=== PATIENT | male | born 1935 | race Caucasian/White ===

== ENCOUNTER 2018-12-30 13:19 | Emergency (ER) | payer MEDICARE ==
--- OUTSIDE RECORDS SUMMARY | 2018-12-30 13:56 | XMS REPORT | Continuity of Care Document ---
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 Payers Date Identification Numbers Payment Provider Subscriber Policy Number: [id number] [employer] Rahul Ortega Group Number: [id number] [address] PayID: [id number] [place] [address] Expires: 2016 Policy Number: [id number] BCBS Medicare Blue Rahul Ortega PayID: [id number] [address] [address] [place] [address] Advance Directives Description No Information Available Problems Date Description Provider Status Onset: 10/28/2018 Right bundle branch block Pro Allen PA Active Onset: 09/03/2006 Benign essential hypertension Active Onset: 09/03/2006 Allergic rhinitis due to pollen Active Onset: 11/24/2011 Pure hypercholesterolemia Jesika Romo MD Active Onset: 06/27/2013 Acne Maura Concepcion MD Active Onset: 10/08/2015 Essential hypertension Jesika Romo MD Active Onset: 12/14/2016 Mixed hyperlipidemia Jesika Romo MD Active Family History Date Family Member(s) Observation Comments Father due to ID () - AT 72 First Brother due to ID () - 60'S Social History Type Date Description Comments Sex Unknown Marital Status Occupation [employer] Tobacco Use Start: Unknown Never Smoked Cigarettes ETOH Use Occasionally consumes alcohol Recreational Drug Use Never Used Drugs Tobacco Use Start: Unknown Patient has never smoked Smoking Status Reviewed: 11/15/18 Patient has never smoked Allergies, Adverse Reactions, Alerts Description No Known Drug Allergies Medications Medication Date Status Form Strength Qnty SIG Indications Ordering Provider Metoprolol 10/28 Active Tablets ER 25mg 90tab 1 by mouth Demetrius, Succinate ER 24HR s every day Jesika Sterling MD Tadalafil 08/30 Active Tablets 5mg 90tab 1 by mouth N40.1 Macadam, s every day Jesika dx: BPH MD Asher Rosuvastatin 08/05 Active Tablets 10mg 90tab 1 by mouth I65.23 Mac[place]astacia, Calcium s every day Jesika Sterling MD Diclofenac Sodium 12/13 Active Gel 1% 300gm apply 1 g M70.62 Macadam per joint Jesika four times MD Asher a day as needed Montelukast 01/11 Active Tablets 10mg 30tab 1 by mouth J30.9 Demetrius, Sodium s every day Jesika Sterling MD Azelastine HCL 12/14 Active Solution 0.15% 30ml 2 p bilat R09.82 Mac[place]astacia, (Nasal) twice a Jesika day as MD Asher needed Flunisolide 12/14 Active Solution 25mcg/Act 25uni Instill 2 [facility]09[facility]82 [facility] Spr[facility] Jesika Into Each MD Asher Nostril Every Day Lisinopril-Hydroc 06/15 Active Tablets 10-12.5mg 90tab 1 by mouth I10 Demetrius hlorothiazide s every day Jesika Sterling MD Aspirin 06/27 Active Tablets 81mg 1 po qd 794.31 Maura Craig MD Omeprazole 05/[address] 20mg 90cap 1 by mouth K21.0 Demetrius s every day Jesika Sterling MD Minocycline HCL 05/24 Active Capsules 100mg 90cap take 1 L71.8 Demetrius s capsule by Jesika mouth once MD Asehr daily Amoxicillin/Clavu 11/15 Hx Tablets 875-125mg 20tab 1 by mouth J01.00 Demetrius lanate Potassium /2018 s twice a Jesika - day MD Asher 12/13 Prednisone 11/15 Hx Tablets 20mg 10tab 2 every in J01.00 Mac[place]astacia, s the Jesika - morning x MD Asher 12/13 5 d Penicillin V 10/27 Hx Tablets 500mg 30tab 1 by mouth J02.0 Macadam, Potassium /2019 s three Jesika - times a MD Asher 11/06 day for days Sildenafil 03/28 Hx Tablets 100mg 6tabs 1/2-1 by F5Mynor.21 Demetrius, Citrate mouth Jesika - every day MD Asher 08/30 as needed Viagra 08/23 Hx Tablets 100mg 6tabs 1/2-1 by F52.21 Demetrius, mouth Jesika - every day MD Asher 03/28 as needed Finasteride 03/30 Hx Tablets 5mg 90tab 1 by mouth N40.1 Demetrius, s every day Jesikaher Bryant Sterling MD 08/23 Amoxicillin/Clavu 02/01 Hx Tablets 875-125mg 20tab 1 by mouth J01.00 Demetrius lanate Potassium s twice a Jesika - day MD Asher 03/30 Tamsulosin HCL 12/14 Hx Capsules 0.4mg 90cap 1 by mouth N40.1 Demetrius, s every day Jesikaher Bryant Sterling MD 08/23 Voltaren 04/09 Hx Gel 1% 300gm apply 1 g M70.62 Demetrius per joint Jesika - four times MD Asher 12/13 a day as needed Protopic 10/08 Hx Ointment 0.03% L80 Demetrius, Jesikaher Bryant Sterling MD 10/08 Ranitidine HCL 10/08 Hx Tablets 150mg 180ta 1 by mouth K21.0 Demetrius, bs twice a Jesika - day MD Asher 01/05 Mometasone 02/19 Hx Cream 0.1% 45gm apply L80 Demetrius Furoate twice a Jesika - day to MD Asher 09/16 forearms Robitussin ac 01/21 Hx 150cc 10cc every night at Maura - bedtime as MD Kiara 02/19 needed for cough Tessalon Perles 01/21 Hx Capsules 100mg 30cap 1 by mouth 478.9 s three Maura - times a MD Kiara 02/19 day as needed cough daytime use. May dispense 200mg tid if 100mg not available Azithromycin 01/21 Hx Tablets 250mg 6tabs 2 tabs 478.9 Jamey, (500mg) on Maura - day 1, MD Kiara 02/19 then 1 tab (250mg) by mouth on day 2-5. To start only if no sx improvemen t by 48hr Flunisolide 12/28 Hx Solution 25mcg/Act Diandra, (0.025%) Patricia Pizarro RN MS 08/21 INFORMATICS COORDINATOR Ipratropium 10/23 Hx Solution 0.03% 30ml nose spray Demetrius Conde 2 p bilat Jesika - bid MD Asher 08/21 Fluticasone 10/02 Hx Suspension 50mcg/Act 16gm 2 sprays 473.9 Demetrius Propionate in each Jesika - nostril MD Asher 08/21 daily Montelukast 10/02 Hx Tablets 10mg 30tab 1 po qd J32.9 Demetrius Sodium s Jesika Sterling MD 10/08 Azelastine HCL 10/02 Hx Solution 137mcg/Sp 30ml use 2 J32.9 Demetrius ray sprays in Jesika - each MD Asher 09/16 nostril twice daily as needed Methylprednisolon 10/02 Hx Tablets 4mg 1pack as dir 473.9 Demetrius e Dose Pack Jesika Sterling MD 10/27 Tamsulosin HCL 08/07 Hx Capsules 0.4mg 30cap one po 30 600.20 Demetrius s minutes Jesika - after meal MD Asher 08/21 Lisinopril/Hydroc 06/27 Hx Tablets 10-12.5mg 90tab 1 po qd 401.1 Demetrius hlorothiazide s Jesika Sterling MD 06/15 Rhinocort Aqua 08/22 Hx Suspension 32mcg/Act QS 2p bilat Demetrius qd Jesika Sterling MD 10/02 Sperry-3 05/24 Hx Capsules 1000mg 1-2 po qd E78.0 Demetrius Jesika Sterling MD 09/16 Medrol Dosepak 05/06 Hx Tablets 4mg 1tabs as 381.01 Elizabeth directeted Bryant Mc MD 05/24 Loratadine 07/20 Hx Tablets 10mg 10tab 1 po qd 381.01 Trabout s (OTC but Alexandro, - remind pt 05/24 to some) Sulfacetamide 03/18 Hx Lotion 10% 118ml apply bid 695.3 [facility], Jesika Sterling MD 06/27 Omeprazole 03/[address] 40mg 90cap 1 po qd 530.11 [facility] 05/24 Lisinopril 05/22 Hx Tablets 10mg 90tab 1 po qd 401.1 Demetrius s Jesika Sterling MD 06/27 Lisinopril 12/26 Hx Tablets 5mg 90tab 1 po qd 401.1 [facility] 05/22 Simvastatin 12/26 Hx Tablets 20mg 90tab 1 po qhs E78.0 anastacia s Jesika Sterling MD 09/16 Nasonex 12/26 Hx Suspension 50mcg/Act QS 2 p bilat 477.0 anastacia qd Jesika Sterling MD 08/22 Metronidazole 12/26 Hx Cream 0.75% 45gm apply to 695.3 face bid Jesika Sterling MD 06/27 Amlodipine 09/05 Hx Tablets 2.5mg 30tab 1 po qd 401.1 Demetruis, s Jesika Sterling MD 06/27 Simvastatin 09/05 Hx Tablets 40mg 1/2 po qhs 272.0 Demetrius Jesika Sterling MD 12/26 Cialis 09/05 Hx Tablets 20mg 3tabs 1/2-1 qd 302.72 Demetrius Jesika Sterling MD 12/26 Tamsulosin HCL 07/25 Hx Capsules 0.4mg 30cap 1 po qd 600.20 Demetrius s Jesika Sterling MD 09/05 Singulair 04/11 Hx Tablets 10mg 90tab one po qd Demetrius s prn Jesika Sterling MD 05/06 Azithromycin 01/16 Hx Tablets 250mg 6tabs 2 tabs day 465.9 one and 1 Patricia - tab daily C, RN MS 01/26 till gone Robitussin ac 01/16 Hx 100cc 1-2 tsp 786.2 qid prn Patricia - cough C, RN MS 01/26 Azithromycin 07/28 Hx Tablets 250mg 6tabs 2 Tabs Day 470 One And 1 Patricia - Tab Daily C, RN MS 08/03 Till Gone Rhinocort Aqua 07/18 Hx Suspension 32mcg/Act 3Bott 2 P Bilat 477.0 les qd Jesika Sterling MD 12/26 Singulair 07/18 Hx Tablets 10mg 30tab 1 po qd 477.0 Trab s Bryant Mc MD 12/20 Prednisone 07/11 Hx Tablets 20mg 10tab 1 po bid x 477.0 s 5 days Bryant Mc MD 07/18 Flonase 07/04 Hx Suspension 50mcg/Act 1unit 2 sprays 477.0 s each Patricia - nostril qd C, RN MS 07/18 Xanax 07/04 Hx Tablets 0.5mg 5tabs 1/2-1 po 465.9 every 6 Patricia - hrs prn C, RN MS 07/28 for anxiety Claritin 07/04 Hx Tablets 10mg 20tab 1 PO qd If 477.0 s Needed For Patricia - Allergies C, RN MS 07/18 Astelin 06/29 Hx Solution 137mcg/Sp 1Bott 2P B bid 477.0 Maca lora Saba MD 07/28 Nasonex 06/28 Hx Suspension 50mcg/Act 1unit 1-2 Maca s Intranasal Jesika - Puffs qd MD Asher 07/04 Lisinopril & HCTZ 09/03 Hx Tablets 10mg;12.5 90tab 1/2 po qd 401.1 Macaanastacia mg s Jesika Sterling MD 12/26 Aspirin 09/03 Hx Gelcaps 325mg 100un 1 PO qd 794.31 Demetrius its Jesika Sterling MD 06/27 Lisinopril 01/22 Hx Tablets 10mg 90tab 1 po qd Demetrius s Jesika Sterling MD 09/03 Celebrex 07/10 Hx Capsules 200mg 60cap 1 po qd 726.71 Demetrius s Jesika Sterling MD 09/03 Flonase 12/25 Hx Suspension 50mcg/Spr 1Bott 2 sprays Demetrius ay le each nare Jesika - kerry Sterling MD 07/04 Teveten 12/09 Hx Tablets 600mg 90tab 1 po qd Diandra s Patricia Pizarro RN MS 01/22 INFORMATICS COORDINATOR Amoxicillin 12/09 Hx Tablets 875mg 20tab 1 po bid Demetrius s Jesika Sterling MD 09/03 Viagra 11/03 Hx Tablets 100mg 6tabs 10/19 or 1 Demetrius tab as Jesika - needed Di Sterling MD before intercours e Tetracycline HCL 11/03 Hx Tablets 500mg 180ta 1 PO bid Demetrius bs Jesika Sterling MD 07/04 Medications Administered in Office Medication Date Status Form Strength Qnty SIG Indications Ordering Provider Depo Medrol 80 Administered Injection Macadam, MG 017 Jesika Sterling MD Depo Medrol 80 Administered Injection [place], MG 016 Jesika Sterling MD Depo Medrol 80 Administered Injection Macadam, MG 011 Jesika Sterling MD Torodol Administered Injection Macadam, Injection 15 005 Jesika Sterling MD Immunizations CPT Code Status Date Vaccine Lot # [id number] Given 08/30/2018 Tdap (Adacel) Ages 7 And Above Only [id number] 93396 Given 08/05/2018 Influenza Vac, Quadrivalent, Split, 0.5mL Dosage, [id number] Im Use 31194 Given 08/23/2017 Influenza Vac, Quadrivalent, Split, 0.5mL Dosage, [id number] Im Use 61174 Given 10/08/2015 Influenza Vac, Quadrivalent, Split, 0.5mL Dosage, [id number] Im Use 12228 Given 08/22/2014 Prevnar 13 Pneumococal Conjugate Vaccine [id number] 43170 Given 08/22/2014 Prevnar 13 Pneumococal Conjugate Vaccine [id number] Given 08/21/2014 Fluzone Trivalent Immunization [id number] Q2038 Given 07/22/2012 Fluzone Trivalent Immunization [id number] 33351 Given 11/24/2011 Zoster (Zostavax) [id number] Q2038 Given 07/16/2011 Fluzone Trivalent Immunization [id number] 38816 Given 07/25/2010 Afluria Or Fluvirin Flu Vac Intramuscular [id number] 22091 Given 08/16/2009 Afluria Or Fluvirin Flu Vac Intramuscular [id number] 45895 Given 09/24/2008 Afluria Or Fluvirin Flu Vac Intramuscular [id number] 87627 Given 09/20/2007 Tdap (Adacel) Ages 7 And Above Only [id number] 50037 Given 09/20/2007 Afluria Or Fluvirin Flu Vac Intramuscular [id number] 67567 Given 08/26/2001 Pneumococcal 23 Immunization Adult Or Immunosuppressed Patient [id number] Refused 02/01/2017 Influenza Vac, Quadrivalent, Split, 0.5mL Dosage, Im Use Vital Signs Date Vital Result Comment 12/13/2018 11:11am Weight 192.00 lb Heart Rate 80 /min BP Systolic 120 mmHg BP Diastolic 72 mmHg Height 71 inches 5'11" BMI (Body Mass Index) 26.8 kg/m2 11/15/2018 8:00am Body Temperature 97.8 F Weight 198.00 lb Heart Rate 80 /min BP Systolic 110 mmHg BP Diastolic 70 mmHg Height 71 inches 5'11" BMI (Body Mass Index) 27.6 kg/m2 10/27/2018 11:51am Body Temperature 98.1 F Weight 202.00 lb Heart Rate 150 /min BP Systolic 155 mmHg BP Diastolic 80 mmHg 08/30/2018 9:39am Weight 199.00 lb Heart Rate 68 /min BP Systolic 140 mmHg BP Diastolic 82 mmHg Height 71 inches 5'11" BMI (Body Mass Index) 27.8 kg/m2 08/05/2018 11:13am Weight 198.00 lb Heart Rate 68 /min BP Systolic 140 mmHg BP Diastolic 80 mmHg Height 71 inches 5'11" BMI (Body Mass Index) 27.6 kg/m2 09/14/2017 12:02pm Heart Rate 76 /min BP Systolic 120 mmHg BP Diastolic 74 mmHg Height 71 inches 5'11" 08/23/2017 11:40am Weight 196.00 lb Heart Rate 68 /min BP Systolic 130 mmHg BP Diastolic 80 mmHg Height 71 inches 5'11" BMI (Body Mass Index) 27.3 kg/m2 03/30/2017 11:00am Weight 195.00 lb Heart Rate 68 /min BP Systolic 120 mmHg BP Diastolic 72 mmHg Height 71 inches 5'11" BMI (Body Mass Index) 27.2 kg/m2 02/01/2017 2:29pm Body Temperature 97.5 F Weight 196.00 lb Heart Rate 74 /min BP Systolic 128 mmHg BP Diastolic 74 mmHg Height 71 inches 5'11" O2 % BldC Oximetry 97 % BMI (Body Mass Index) 27.3 kg/m2 01/11/2017 9:42am Weight 199.00 lb Heart Rate 76 /min BP Systolic 140 mmHg BP Diastolic 80 mmHg Height 71 inches 5'11" BMI (Body Mass Index) 27.8 kg/m2 12/14/2016 9:45am Body Temperature 97.8 F Weight 197.00 lb Heart Rate 76 /min BP Systolic 138 mmHg BP Diastolic 78 mmHg Height 71 inches 5'11" BMI (Body Mass Index) 27.5 kg/m2 09/16/2016 8:06am Weight 194.25 lb Heart Rate 77 /min BP Systolic 144 mmHg BP Diastolic 81 mmHg Height 71 inches 5'11" BMI (Body Mass Index) 27.1 kg/m2 Urine Dipstick - Blood NEGATIVE Urine Dipstick - Protein NEGATIVE Urine Dipstick - Glucose NEGATIVE Urine Dipstick - Leukocytes NEGATIVE 04/09/2016 7:59am Weight 198.38 lb Heart Rate 62 /min BP Systolic 136 mmHg BP Diastolic 80 mmHg Height 71 inches 5'11" BMI (Body Mass Index) 27.7 kg/m2 10/08/2015 8:40am Weight 200.50 lb Heart Rate 88 /min BP Systolic 148 mmHg BP Diastolic 88 mmHg BP Systolic Recheck 128 mmHg BP Diastolic Recheck 80 mmHg Height 71 inches 5'11" BMI (Body Mass Index) 28.0 kg/m2 Urine Dipstick - Blood NEGATIVE Urine Dipstick - Protein NEGATIVE Urine Dipstick - Glucose NEGATIVE Urine Dipstick - Leukocytes 1+ 02/19/2015 7:59am Weight 196.00 lb Heart Rate 76 /min BP Systolic 120 mmHg BP Diastolic 72 mmHg Height 71 inches 5'11" BMI (Body Mass Index) 27.3 kg/m2 01/21/2015 11:10am Weight 197.00 lb Heart Rate 91 /min BP Systolic 120 mmHg BP Diastolic 72 mmHg Height 71 inches 5'11" BMI (Body Mass Index) 27.5 kg/m2 11/23/2014 11:14am Weight 199.00 lb Heart Rate 76 /min BP Systolic 116 mmHg BP Diastolic 68 mmHg Height 71 inches 5'11" BMI (Body Mass Index) 27.8 kg/m2 08/21/2014 8:17am Weight 199.00 lb Heart Rate 76 /min BP Systolic 130 mmHg BP Diastolic 68 mmHg Height 71 inches 5'11" BMI (Body Mass Index) 27.8 kg/m2 10/27/2013 10:23am Weight 203.00 lb Heart Rate 80 /min BP Systolic 138 mmHg BP Diastolic 78 mmHg Height 71 inches 5'11" BMI (Body Mass Index) 28.3 kg/m2 10/02/2013 11:41am Body Temperature 98.7 F Weight 200.00 lb Heart Rate 76 /min BP Systolic 138 mmHg BP Diastolic 70 mmHg Height 71 inches 5'11" BMI (Body Mass Index) 27.9 kg/m2 08/07/2013 2:49pm Weight 196.00 lb Heart Rate 76 /min BP Systolic 144 mmHg BP Diastolic 66 mmHg Height 71.5 inches 5'11.50" BMI (Body Mass Index) 27.0 kg/m2 06/27/2013 9:11am Weight 195.00 lb Heart Rate 80 /min BP Systolic 138 mmHg BP Diastolic 78 mmHg Height 71.5 inches 5'11.50" BMI (Body Mass Index) 26.8 kg/m2 05/24/2012 8:21am Weight 196.00 lb Heart Rate 76 /min BP Systolic 136 mmHg BP Diastolic 70 mmHg Height 71.5 inches 5'11.50" BMI (Body Mass Index) 27.0 kg/m2 05/06/2012 9:24am Body Temperature 97.7 F Weight 198.00 lb Heart Rate 68 /min BP Systolic 168 mmHg BP Diastolic 74 mmHg 03/18/2012 8:03am Weight 196.00 lb Heart Rate 76 /min BP Systolic 138 mmHg BP Diastolic 70 mmHg Height 71.5 inches 5'11.50" BMI (Body Mass Index) 27.0 kg/m2 11/24/2011 9:15am Weight 199.00 lb Heart Rate 72 /min BP Systolic 148 mmHg BP Diastolic 68 mmHg BP Systolic Recheck 132 mmHg BP Diastolic Recheck 72 mmHg Height 71.25 inches 5'11.25" BMI (Body Mass Index) 27.6 kg/m2 07/16/2011 1:09pm Weight 200.00 lb Heart Rate 88 /min BP Systolic 132 mmHg BP Diastolic 71 mmHg 05/22/2011 9:16am Weight 197.00 lb Heart Rate 68 /min BP Systolic 146 mmHg BP Diastolic 80 mmHg Height 71.25 inches 5'11.25"With Shoes BMI (Body Mass Index) 27.3 kg/m2 12/26/2010 9:52am Weight 201.00 lb Heart Rate 76 /min BP Systolic 140 mmHg BP Diastolic 74 mmHg 09/05/2010 9:53am Weight 194.00 lb With Shoes Heart Rate 59 /min BP Systolic 115 mmHg BP Diastolic 72 mmHg 07/25/2010 9:20am Weight 192.00 lb Heart Rate 54 /min BP Systolic 138 mmHg BP Diastolic 70 mmHg Height 70.25 inches 5'10.25" BMI (Body Mass Index) 27.4 kg/m2 Urine Dipstick - Blood NEGATIVE Urine Dipstick - Protein NEGATIVE Urine Dipstick - Glucose NEGATIVE 01/16/2010 8:26am Body Temperature 97.8 F Weight 198.00 lb Heart Rate 85 /min BP Systolic 129 mmHg BP Diastolic 69 mmHg 08/16/2009 9:38am Weight 198.00 lb Heart Rate 64 /min BP Systolic 126 mmHg BP Diastolic 60 mmHg Height 71.75 inches 5'11.75" BMI (Body Mass Index) 27.0 kg/m2 Urine Dipstick - Blood NEGATIVE Urine Dipstick - Protein NEGATIVE Urine Dipstick - Glucose NEGATIVE 09/24/2008 12:57pm Weight 199.00 lb Heart Rate 76 /min BP Systolic 142 mmHg BP Diastolic 80 mmHg Height 71.5 inches 5'11.50"With Shoes BMI (Body Mass Index) 27.4 kg/m2 Urine Dipstick - Blood NEGATIVE Urine Dipstick - Protein NEGATIVE Urine Dipstick - Glucose NEGATIVE 09/20/2007 8:30am Weight 198.00 lb Heart Rate 71 /min BP Systolic 142 mmHg BP Diastolic 69 mmHg Height 71.5 inches 5'11.50"With Shoes BMI (Body Mass Index) 27.2 kg/m2 07/28/2007 12:58pm Body Temperature 97.7 F Weight 195.00 lb Heart Rate 95 /min BP Systolic 145 mmHg BP Diastolic 81 mmHg Respiratory Rate 20 /min Height 72 inches 6'0" BMI (Body Mass Index) 26.4 kg/m2 07/18/2007 12:25pm Weight 196.00 lb Heart Rate 78 /min BP Systolic 148 mmHg BP Diastolic 83 mmHg Height 72 inches 6'0" BMI (Body Mass Index) 26.6 kg/m2 07/11/2007 10:12am Body Temperature 97.1 F Weight 197.00 lb Heart Rate 73 /min BP Systolic 151 mmHg BP Diastolic 92 mmHg Height 72 inches 6'0" BMI (Body Mass Index) 26.7 kg/m2 07/04/2007 9:31am Body Temperature 97.9 F Weight 192.00 lb Heart Rate 88 /min BP Systolic 135 mmHg BP Diastolic 88 mmHg Respiratory Rate 22 /min Height 72 inches 6'0" BMI (Body Mass Index) 26.0 kg/m2 09/03/2006 1:02pm Weight 194.00 lb Heart Rate 78 /min BP Systolic 160 mmHg BP Diastolic 66 mmHg BP Systolic Recheck 148 mmHg BP Diastolic Recheck 80 mmHg Height 72 inches 6'0" BMI (Body Mass Index) 26.3 kg/m2 Urine Dipstick - Blood NEGATIVE Urine Dipstick - Protein NEGATIVE Urine Dipstick - Glucose NEGATIVE 07/10/2005 4:53pm Weight 191.00 lb Heart Rate 70 /min BP Systolic 148 mmHg BP Diastolic 8 mmHg 12/19/2004 8:29am Weight 198.00 lb Heart Rate 76 /min BP Systolic 144 mmHg BP Diastolic 83 mmHg 12/09/2004 8:37am Weight 195.00 lb Heart Rate 72 /min BP Systolic 129 mmHg BP Diastolic 76 mmHg Urine Dipstick - Blood NEGATIVE Urine Dipstick - Protein NEGATIVE Urine Dipstick - Glucose NEGATIVE Results Test Date Facility Test Result H/L Range Note Laboratory test 10/27/2018 Done In [facility] 1 Strep positive Negative finding Screen (In-House) Comprehensive Met 08/30/2018 [facility] Sodium 141 mmol/L 135-146 1, 2 [facility] Potassium 4.6 mmol/L 3.5-5.2 Chloride# 105 mmol/L 97-110 3 Carbon Dioxide 26 mmol/L 24-34 Glucose 89 mg/dL 70-105 BUN 25 mg/dL 6-26 Creatinine 1.2 mg/dL 0.5-1.4 Calcium 9.7 mg/dL 8.5-10.2 Total Protein 6.4 g/dL 6.0-8.0 Albumin 4.3 g/dL 3.6-4.9 Globulin 2.1 g/dL 2.0-3.5 A/G Ratio 2.0 Ratio 1.0-2.2 Total Bilirubin 1.0 mg/dL 0.1-1.3 Alkaline Phosphatase 70 U/L 24-140 Alt 13 U/L 3-42 Ast 18 U/L 8-42 Fernanda Egfr >60 >60 4 Non Fernanda Egfr 57 Low >60 5 Anion Gap 10 mmol/L 5-15 6 Lipid 08/30/2018 [facility] Cholesterol 156 mg/dL 50-199 Triglycerides 59 mg/dL 30-200 HDL 61 mg/dL 29-71 7 Chol/ HDL Ratio 2.6 ratio Low 4.0-6.7 VLDL 12 mg/dL 2-29 LDL (Calc) 83 mg/dL 20-99 8 Laboratory test finding 08/30/2018 [facility] TSH 1.36 uIU/mL 0.35-4.94 Magnesium 2.3 mg/dL 1.5-2.7 Comprehensive Met Panel[facility] 08/05/2018 [facility] Sodium 140 mmol/L 135- 146 9 Potassium 4.7 mmol/L 3.5-5.2 Chloride# 103 mmol/L 97-110 10 Carbon Dioxide 26 mmol/L 24-34 Glucose 92 mg/dL 70-105 BUN 22 mg/dL 6-26 Creatinine 1.4 mg/dL 0.5-1.4 Calcium 9.7 mg/dL 8.5-10.2 Total Protein 6.6 g/dL 6.0-8.0 Albumin 4.3 g/dL 3.6-4.9 Globulin 2.3 g/dL 2.0-3.5 A/G Ratio 1.9 Ratio 1.0-2.2 Total Bilirubin 1.0 mg/dL 0.1-1.3 Alkaline Phosphatase 72 U/L 24-140 Alt 11 U/L 3-42 Ast 14 U/L 8-42 Fernanda Egfr 60 Low >60 11 Non Fernanda Egfr 49 Low >60 12 Anion Gap 11 mmol/L 5-15 13 Lipid 08/05/2018 [facility] Cholesterol 193 mg/dL 50-199 Triglycerides 65 mg/dL 30-200 HDL 59 mg/dL - 14 Chol/ HDL Ratio 3.3 ratio Low 4.0-6.7 VLDL 13 mg/dL 2-29 LDL (Calc) 121 mg/dL High 20-99 15 Comprehensive Met Panel[facility] 08/23/2017 [facility] Sodium 143 mmol/L 135- 146 16 Potassium 4.7 mmol/L 3.5-5.2 Chloride# 106 mmol/L 97-110 17 Carbon Dioxide 26 mmol/L 24-34 Glucose 78 mg/dL 70-105 Creatinine 1.2 mg/dL 0.5-1.4 Calcium 9.6 mg/dL 8.5-10.2 Total Protein 6.5 g/dL 6.0-8.0 Albumin 4.2 g/dL 3.6-4.9 Globulin 2.3 g/dL 2.0-3.5 A/G Ratio 1.8 Ratio 1.0-2.2 Total Bilirubin 0.9 mg/dL 0.1-1.3 Alkaline Phosphatase 70 U/L 24-140 Alt 11 U/L 3-42 Ast 17 U/L 8-42 Fernanda Egfr >60 >60 18 Non Fernanda Egfr 59 Low >60 19 Anion Gap 11 mmol/L 7-16 20 BUN 25 mg/dL 6-26 Lipid 08/23/2017 [facility] Cholesterol 194 mg/dL 50-199 Triglycerides 48 mg/dL 30-200 HDL 64 mg/dL 21 Chol/ HDL Ratio 3.1 ratio Low 4.0-6.7 VLDL 10 mg/dL 2-29 LDL (Calc) 121 mg/dL High 20-99 22 CBC With Auto Diff 03/30/2017 [facility] WBC 5.5 K/uL 4.1-11.0 RBC 5.26 M/uL 4.60-6.10 Hemoglobin 15.5 gm/dL 13.5-18.0 Hematocrit 47.4 % 41.0-53.0 MCV 90.2 fL 80.0-97.0 MCH 29.5 pg 27.0-32.0 MCHC 32.7 g/dL 32.0-36.0 RDW 13.6 % 11.5-14.5 PLT Count 211 K/ul 140-400 Neutrophil 68.0 % 35.0-75.0 Lymphocyte 19.2 % 16.0-52.0 Monocyte 9.5 % 2.0-10.0 Eosinophil 2.6 % 0.0-5.0 Basophil 0.7 % 0.0-4.0 Abs Neutrophils 3.8 K/uL 2.1-8.0 Abs Lymphocytes 1.1 K/uL 0.8-5.5 Abs Monocytes 0.5 K/uL 0.1-1.0 Abs Eosinophils 0.1 K/uL 0.0-0.5 Abs Basophils 0.0 K/uL 0.0-0.3 Comprehensive Metabolic (CMP) 03/30/2017 [facility] Sodium 139 mmol/L 135- 146 23 Potassium 4.7 mmol/L 3.5-5.2 Chloride# 103 mmol/L 97-110 24 Carbon Dioxide 27 mmol/L 24-34 Glucose 98 mg/dL 70-105 BUN 25 mg/dL 6-26 Creatinine 1.5 mg/dL High 0.5-1.4 Calcium 9.8 mg/dL 8.5-10.2 Total Protein 6.5 g/dL 6.0-8.0 Albumin 4.2 g/dL 3.6-4.9 Globulin 2.3 g/dL 2.0-3.5 A/G Ratio 1.8 Ratio 1.0-2.2 Total Bilirubin 1.1 mg/dL 0.1-1.3 Alkaline Phosphatase 74 U/L 24-140 Alt 15 U/L 3-42 Ast 20 U/L 8-42 Fernanda Egfr 56 Low >60 25 Non Fernanda Egfr 47 Low >60 26 Anion Gap 14 mmol/L 7-16 27 Lipid 03/30/2017 [facility] Cholesterol 195 mg/dL 50-199 Triglycerides 63 mg/dL 30-200 HDL 62 mg/dL 29-71 28 Chol/ HDL Ratio 3.1 ratio Low 4.0-6.7 VLDL 13 mg/dL 2-29 LDL (Calc) 120 mg/dL High 20-99 29 Comprehensive Metabolic (CMP) 09/16/2016 [facility] Sodium 137 mmol/L 134- 142 Potassium 5.1 mmol/L 3.5-5.2 Chloride 101 mmol/L 97-109 Carbon Dioxide 28 mmol/L 24-34 Glucose 102 mg/dL 70-105 BUN 23 mg/dL 6-26 Creatinine 1.3 mg/dL 0.5-1.4 Calcium 10.0 mg/dL 8.5-10.2 Total Protein 6.8 g/dL 6.0-8.0 Albumin 4.3 g/dL 3.6-4.9 Globulin 2.5 g/dL 2.0-3.5 A/G Ratio 1.7 Ratio 1.0-2.2 Total Bilirubin 0.9 mg/dL 0.1-1.3 Alkaline Phosphatase 70 U/L 24-140 Alt 12 U/L 3-42 Ast 18 U/L 8-42 Anion Gap 13 mmol/L 6-14 Fernanda Egfr >60 >60 30 Non Fernanda Egfr 55 Low >60 31 CBC With [facility]16[facility]2016 [facility] 5.9 K/uL 4.1-11.0 RBC 5.51 M/uL 4.60-6.10 Hemoglobin 16.9 gm/dL 13.5-18.0 Hematocrit 50.5 % 41.0-53.0 MCV 91.6 fL 80.0-97.0 MCH 30.6 pg 27.0-32.0 MCHC 33.4 g/dL 32.0-36.0 RDW 13.4 % 11.5-14.5 PLT Count 228 K/ul 140-400 Neutrophil 69.2 % 35.0-75.0 Lymphocyte 18.6 % 16.0-52.0 Monocyte 8.1 % 2.0-10.0 Eosinophil 3.3 % 0.0-5.0 Basophil 0.8 % 0.0-4.0 Abs Neutrophils 4.1 K/uL 2.1-8.0 Abs Lymphocytes 1.1 K/uL 0.8-5.5 Abs Monocytes 0.5 K/uL 0.1-1.0 Abs Eosinophils 0.2 K/uL 0.0-0.5 Abs Basophils 0.0 K/uL 0.0-0.3 Lipid 09/16/2016 [facility] Cholesterol 199 mg/dL 50-199 Triglycerides 73 mg/dL 30-200 HDL 60 mg/dL 29-71 32 Chol/ HDL Ratio 3.3 ratio Low 4.0-6.7 VLDL 15 mg/dL 2-29 LDL (Calc) 124 mg/dL High 20-99 33 Laboratory test finding 09/16/2016 [facility] PSA 2.210 ng/mL 0.000-4.000 34 Lipid 04/09/2016 [facility] Cholesterol 175 mg/dL 50-199 Triglycerides 64 mg/dL 30-200 HDL 66 mg/dL 29-71 35 Chol/ HDL Ratio 2.7 ratio Low 4.0-6.7 VLDL 13 mg/dL 2-29 LDL (Calc) 96 mg/dL 20-99 36 Comprehensive Metabolic (CMP) 04/09/2016 [facility] Sodium 135 mmol/L 134- 142 Potassium 5.3 No visible h <SEE NOTE> mmol/L High 3.5-5.2 37 Chloride 104 mmol/L 97-109 Carbon Dioxide 25 mmol/L 24-34 Glucose 101 mg/dL 70-105 BUN 24 mg/dL 6-26 Creatinine 1.2 mg/dL 0.5-1.4 Calcium 9.6 mg/dL 8.5-10.2 Total Protein 6.7 g/dL 6.0-8.0 Albumin 4.2 g/dL 3.6-4.9 Globulin 2.5 g/dL 2.0-3.5 A/G Ratio 1.7 Ratio 1.0-2.2 Total Bilirubin 1.0 mg/dL 0.1-1.3 Alkaline Phosphatase 64 U/L 24-140 Alt 15 U/L 3-42 Ast 18 U/L 8-42 Anion Gap 11 mmol/L 6-14 Fernanda Egfr >60 >60 38 Non Fernanda Egfr 58 Low >60 39 Comprehensive Metabolic (CMP) 10/08/2015 [facility] Sodium 137 mmol/L 134- 142 Potassium 5.1 mmol/L 3.5-5.2 Chloride 102 mmol/L 97-109 Carbon Dioxide 28 mmol/L 24-34 Glucose 100 mg/dL 70-105 BUN 24 mg/dL 6-26 Creatinine 1.2 mg/dL 0.5-1.4 Calcium 9.8 mg/dL 8.5-10.2 Total Protein 6.8 g/dL 6.0-8.0 Albumin 4.3 g/dL 3.6-4.9 Globulin 2.5 g/dL 2.0-3.5 A/G Ratio 1.7 Ratio 1.0-2.2 Total Bilirubin 1.0 mg/dL 0.1-1.3 Alkaline Phosphatase 69 U/L 24-140 Alt 13 U/L 3-42 Ast 19 U/L 8-42 Anion Gap 12 mmol/L 6-14 Fernanda Egfr >60 >60 40 Non Fernanda Egfr 57 Low >60 41 Lipid 10/08/2015 [facility] Cholesterol 167 mg/dL 50-199 Triglycerides 69 mg/dL 30-200 HDL 59 mg/dL 29-71 42 Chol/ HDL Ratio 2.8 ratio Low 4.0-6.7 VLDL 14 mg/dL 2-29 LDL (Calc) 94 mg/dL 20-99 43 Laboratory test finding 10/08/2015 [facility] PSA 1.990 ng/mL 0.000-4.000 44 CBC With Auto Diff 10/08/2015 [facility] WBC 6.2 K/uL 4.1-11.0 RBC 5.62 M/uL 4.60-6.10 Hemoglobin 16.6 gm/dL 13.5-18.0 Hematocrit 51.3 % 41.0-53.0 MCV 91.3 fL 80.0-97.0 MCH 29.5 pg 27.0-32.0 MCHC 32.3 g/dL 32.0-36.0 RDW 13.5 % 11.5-14.5 PLT Count 205 K/ul 140-400 Neutrophil 71.6 % 35.0-75.0 Lymphocyte 16.4 % 16.0-52.0 Monocyte 8.5 % 2.0-10.0 Eosinophil 2.7 % 0.0-5.0 Basophil 0.8 % 0.0-4.0 Abs Neutrophils 4.5 K/uL 2.1-8.0 Abs Lymphocytes 1.0 K/uL 0.8-5.5 Abmon 0.5 K/uL 0.1-1.0 Abs Eosinophils 0.2 K/uL 0.0-0.5 Abs Basophils 0.0 K/uL 0.0-0.3 Comprehensive Metabolic (CMP) 02/19/2015 [facility] Sodium 136 mmol/L 134- 142 Potassium 4.4 mmol/L 3.5-5.2 Chloride 105 mmol/L 97-109 Carbon Dioxide 25 mmol/L 24-34 Glucose 112 mg/dL High 70-105 BUN 33 mg/dL High 6-26 Creatinine 1.4 mg/dL 0.5-1.4 Calcium 9.5 mg/dL 8.5-10.2 Total Protein 6.7 g/dL 6.0-8.0 Albumin 4.2 g/dL 3.6-4.9 Globulin 2.5 g/dL 2.0-3.5 A/G Ratio 1.7 Ratio 1.0-2.2 Total Bilirubin 1.1 mg/dL 0.1-1.3 Alkaline Phosphatase 65 U/L 24-140 Alt 15 U/L 3-42 Ast 20 U/L 8-42 Anion Gap 10 mmol/L 6-14 Fernanda Egfr >60 >60 45 Non Fernanda Egfr 51 Low >60 46 Lipid 02/19/2015 [facility] Cholesterol 162 mg/dL 50-199 Triglycerides 58 mg/dL 30-200 HDL 63 mg/dL 29-71 47 Chol/ HDL Ratio 2.6 ratio Low 4.0-6.7 VLDL 12 mg/dL 2-29 LDL (Calc) 87 mg/dL 20-99 48 CBC With Auto Diff 08/21/2014 [facility] WBC 4.9 K/uL 4.1-11.0 RBC 5.41 M/uL 4.60-6.10 Hemoglobin 16.6 gm/dL 13.5-18.0 Hematocrit 48.9 % 41.0-53.0 MCV 90.3 fL 80.0-97.0 MCH 30.6 pg 27.0-32.0 MCHC 33.9 g/dL 32.0-36.0 RDW 14.0 % 11.5-14.5 PLT Count 221 K/ul 140-400 Neutrophil 62.8 % 35.0-75.0 Lymphocyte 22.1 % 16.0-52.0 Monocyte 9.3 % 2.0-10.0 Eosinophil 4.8 % 0.0-5.0 Basophil 1.0 % 0.0-4.0 Abs Neutrophils 3.1 K/uL 2.1-8.0 Abs Lymphocytes 1.1 K/uL 0.8-5.5 Abmon 0.5 K/uL 0.1-1.0 Abs Eosinophils 0.2 K/uL 0.0-0.5 Abs Basophils 0.1 K/uL 0.0-0.3 Comprehensive Metabolic (CMP) 08/21/2014 [facility] Sodium 138 mmol/L 134- 142 Potassium 5.0 mmol/L 3.5-5.2 Chloride 103 mmol/L 97-109 Carbon Dioxide 25 mmol/L 24-34 Glucose 101 mg/dL 70-105 BUN 23 mg/dL 6-26 Creatinine 1.2 mg/dL 0.5-1.4 Calcium 9.7 mg/dL 8.5-10.2 Total Protein 6.8 g/dL 6.0-8.0 Albumin 4.3 g/dL 3.6-4.9 Globulin 2.5 g/dL 2.0-3.5 A/G Ratio 1.7 Ratio 1.0-2.2 Total Bilirubin 0.9 mg/dL 0.1-1.3 Alkaline Phosphatase 68 U/L 24-140 Alt 13 U/L 3-42 Ast 17 U/L 8-42 Anion Gap 15 mmol/L High 6-14 Fernanda Egfr >60 >60 49 Non Fernanda Egfr 58 Low >60 50 Lipid 08/21/2014 [facility] Cholesterol 165 mg/dL 50-199 Triglycerides 53 mg/dL 30-200 HDL 65 mg/dL 29-71 51 Chol/ HDL Ratio 2.5 ratio Low 4.0-6.7 VLDL 11 mg/dL 2-29 LDL (Calc) 89 mg/dL 20-99 52 Laboratory test finding 08/21/2014 [facility] TSH 1.05 uIU/mL 0.34-5.60 Magnesium 2.1 mg/dL 1.5-2.7 Vitamin B12 1196 pg/mL High 180-914 PSA 1.610 ng/mL 0.000-4.000 53 Laboratory test 08/07/2013 [facility] Urine Culture Microbiology res 54 finding <SEE NOTE> CBC With Auto Diff 06/27/2013 [facility] WBC 5.1 K/uL 4.1-11.0 RBC 5.11 M/uL 4.60-6.10 Hemoglobin 16.0 gm/dL 13.5-18.0 Hematocrit 47.0 % 41.0-53.0 MCV 91.9 fL 80.0-97.0 MCH 31.3 pg 27.0-32.0 MCHC 34.0 g/dL 32.0-36.0 RDW 13.5 % 11.5-14.5 PLT Count 214 K/ul 140-400 Neutrophil 67.7 % 35.0-75.0 Lymphocyte 19.0 % 16.0-52.0 Monocyte 9.5 % 2.0-10.0 Eosinophil 3.0 % 0.0-5.0 Basophil 0.8 % 0.0-4.0 Abs Neutrophils 3.5 K/uL 2.1-8.0 Abs Lymphocytes 1.0 K/uL 0.8-5.5 Abs Monocytes 0.5 K/uL 0.1-1.0 Abs Eosinophils 0.2 K/uL 0.0-0.5 Abs Basophils 0.0 K/uL 0.0-0.3 Comprehensive Metabolic (CMP) 06/27/2013 [facility] Sodium 136 mmol/L 134- 142 Potassium 5.3 No visible h <SEE NOTE> mmol/L High 3.5-5.2 55 Chloride 103 mmol/L 97-109 Carbon Dioxide 25 mmol/L 24-34 Glucose 94 mg/dL 70-105 BUN 23 mg/dL 6-26 Creatinine 1.3 mg/dL 0.5-1.4 Calcium 9.5 mg/dL 8.5-10.2 Total Protein 6.7 g/dL 6.0-8.0 Albumin 4.4 g/dL 3.6-4.9 Globulin 2.3 g/dL 2.0-3.5 A/G Ratio 1.9 Ratio 1.0-2.2 Total Bilirubin 0.8 mg/dL 0.1-1.3 Alkaline Phosphatase 61 U/L 24-140 Alt 15 U/L 3-42 Ast 18 U/L 8-42 Anion Gap 13 mmol/L 6-14 Fernanda Egfr >60 >60 56 Non Fernanda Egfr 56 Low >60 57 Lipid 06/27/2013 [facility] Cholesterol 168 mg/dL 50-199 Triglycerides 57 mg/dL 30-200 HDL 67 mg/dL 29-71 58 Chol/ HDL Ratio 2.5 ratio Low 4.0-6.7 VLDL 11 mg/dL 2-29 LDL (Calc) 90 mg/dL 20-99 59 Laboratory test finding 06/27/2013 [facility] TSH 1.39 uIU/mL 0.34-5.60 PSA 2.12 ng/mL 0.00-4.00 60 PT+PTT -RL 06/27/2013 [facility] Aptt 30.2 SEC (22.0-32.6) 61 Protime 06/27/2013 [facility] PT 11.7 SEC (9.2-11.9) Inr 1.07 62 Laboratory test finding 05/24/2012 [facility] Hemoglobin A1c 5.9 % 4.1-5.9 Basic (BMP) 05/24/2012 [facility] Sodium 137 mmol/L 134-142 Potassium 5.0 mmol/L 3.5-5.2 Chloride 102 mmol/L 97-109 Carbon Dioxide 27 mmol/L 24-34 Glucose 108 mg/dL High 70-105 BUN 25 mg/dL 6-26 Creatinine 1.1 mg/dL 0.5-1.4 Calcium 9.7 mg/dL 8.5-10.2 Anion Gap 13 mmol/L 6-14 Non Fernanda Egfr >60 >60 63 Fernanda Egfr >60 >60 64 CBC With Auto Diff 05/24/2012 [facility] WBC 5.4 K/uL 4.1-11.0 RBC 5.07 M/uL 4.60-6.10 Hemoglobin 15.5 gm/dL 13.5-18.0 Hematocrit 46.4 % 41.0-53.0 MCV 91.5 fL 80.0-97.0 MCH 30.6 pg 27.0-32.0 MCHC 33.4 g/dL 32.0-36.0 RDW 13.4 % 11.5-14.5 PLT Count 194 K/ul 140-400 Neutrophil 62.0 % 35.0-75.0 Lymphocyte 22.9 % 16.0-52.0 Monocyte 9.9 % 2.0-10.0 Eosinophil 4.4 % 0.0-5.0 Basophil 0.8 % 0.0-4.0 Abs Neutrophils 3.3 K/uL 2.1-8.0 Abs Lymphocytes 1.2 K/uL 0.8-5.5 Abs Monocytes 0.5 K/uL 0.1-1.0 Abs Eosinophils 0.2 K/uL 0.0-0.5 Abs Basophils 0.0 K/uL 0.0-0.3 Laboratory test finding 05/24/2012 [facility] TSH 1.09 uIU/mL 0.34-5.60 CBC With Auto Diff 11/24/2011 [facility] WBC 5.2 K/uL 4.1-11.0 RBC 5.08 M/uL 4.60-6.10 Hemoglobin 16.1 gm/dL 13.5-18.0 Hematocrit 47.6 % 41.0-53.0 MCV 93.7 fL 80.0-97.0 MCH 31.7 pg 27.0-32.0 MCHC 33.9 g/dL 32.0-36.0 RDW 13.8 % 11.5-14.5 PLT Count 191 K/ul 140-400 Neutrophil 64.7 % 35.0-75.0 Lymphocyte 22.8 % 16.0-52.0 Monocyte 8.2 % 2.0-10.0 Eosinophil 3.7 % 0.0-5.0 Basophil 0.6 % 0.0-4.0 Abs Neutrophils 3.4 K/uL 2.1-8.0 Abs Lymphocytes 1.2 K/uL 0.8-5.5 Abs Monocytes 0.4 K/uL 0.1-1.0 Abs Eosinophils 0.2 K/uL 0.0-0.5 Abs Basophils 0.0 K/uL 0.0-0.3 Comprehensive Metabolic (CMP) 11/24/2011 [facility] Sodium 138 mmol/L 135- 144 Potassium 4.4 mmol/L 3.5-5.1 Chloride 105 mmol/L 97-107 Carbon Dioxide 27 mmol/L 24-34 Glucose 101 mg/dL 70-105 BUN 20 mg/dL 7-25 Creatinine 1.1 mg/dL 0.7-1.3 Calcium 9.5 mg/dL 8.6-10.3 BUN/CR 19 ratio 12-20 Total Protein 6.7 g/dL 6.0-8.5 Albumin 4.4 g/dL 3.5-5.7 Globulin 2.3 g/dL 2.0-3.5 A/G Ratio 1.9 Ratio 1.0-2.2 Total Bilirubin 1.1 mg/dL 0.3-1.3 Alkaline Phosphatase 59 U/L 34-104 Alt 12 U/L 7-52 Ast 17 U/L 13-39 Anion Gap 10 mmol/L 8-16 Non Fernanda Egfr >60 >60 65 Fernanda Egfr >60 >60 66 Lipid 11/24/2011 [facility] Cholesterol 164 mg/dL 50-199 Triglycerides 55 mg/dL 10-150 HDL 66 mg/dL 23-92 67 Chol/ HDL Ratio 2.5 ratio Low 4.0-6.7 VLDL 11 mg/dL 2-29 LDL (Calc) 87 mg/dL 20-129 68 Laboratory test finding 11/24/2011 [facility] Hemoglobin A1c 5.9 % 4.1-5.9 PSA 1.69 ng/mL 0.00-4.00 69 CPK 69 U/L 30-223 Magnesium 2.1 mg/dL 1.9-2.7 Comprehensive Metabolic (CMP) 04/02/2011 [facility] Sodium 137 mmol/L 135- 144 70 Potassium 4.2 mmol/L 3.6-5.2 Chloride 106 mmol/L 97-110 Carbon Dioxide 25 mmol/L 23-32 Glucose 116 mg/dL High 70-105 BUN 16 mg/dL 6-22 Creatinine 1.2 mg/dL 0.5-1.3 Calcium 9.4 mg/dL 8.6-10.2 BUN/CR 13 ratio 12-20 Total Protein 6.6 g/dL 5.8-7.8 Albumin 3.9 g/dL 3.5-4.8 Globulin 2.7 g/dL 2.0-3.5 A/G Ratio 1.4 Ratio 1.0-2.2 Total Bilirubin 1.2 mg/dL 0.3-1.2 Alkaline Phosphatase 60 U/L 24-140 Alt 22 U/L 5-45 Ast 23 U/L 12-40 Anion Gap 10 mmol/L 8-16 Non Fernanda Egfr 59 Low >60 71 Fernanda Egfr >60 >60 72 Laboratory test finding 04/02/2011 [facility] Hemoglobin A1c 6.1 % High 4.1- 5.9 Lipid 04/02/2011 [facility] Cholesterol 165 mg/dL 50-199 Triglycerides 49 mg/dL 10-150 HDL 64 mg/dL 29-71 73 Chol/ HDL Ratio 2.6 ratio Low 4.0-6.7 VLDL 10 mg/dL 2-29 LDL (Calc) 91 mg/dL 20-129 74 Comprehensive Metabolic (CMP) 12/26/2010 [facility] Sodium 138 mmol/L 135- 144 75 Potassium 4.6 mmol/L 3.6-5.2 Chloride 103 mmol/L 97-110 Carbon Dioxide 25 mmol/L 23-32 Glucose 108 mg/dL High 70-105 BUN 24 mg/dL High 6-22 Creatinine 1.3 mg/dL 0.5-1.3 Calcium 9.8 mg/dL 8.6-10.2 BUN/CR 18 ratio 12-20 Total Protein 6.6 g/dL 5.8-7.8 Albumin 4.0 g/dL 3.5-4.8 Globulin 2.6 g/dL 2.0-3.5 A/G Ratio 1.5 Ratio 1.0-2.2 Tbili 1.0 mg/dL 0.3-1.2 Alk Phos 63 U/L 24-140 Alt 19 U/L 5-45 Ast 22 U/L 12-40 Anion Gap 15 mmol/L 8-16 NAAeGFR 54 Low >60 76 AAeGFR >60 >60 77 Lipid 12/26/2010 [facility] Cholesterol 170 mg/dL 50-199 Triglycerides 57 mg/dL 10-150 HDL 68 mg/dL 29-71 78 Chol/HDL 2.5 ratio Low 4.0-6.7 VLDL 11 mg/dL 2-29 LDL 91 mg/dL 20-129 79 Laboratory test 12/26/2010 [facility] Hemoglobin A1c 5.8 % 4.1-6.6 finding CBC With Auto 07/25/2010 [facility] (Do not Use) WBC 5.6 K/ul 4.0-10.9 80 Diff [facility] [place] [address] [phone] RBC 5.14 M/ul 4.70-6.10 Hemoglobin 16.4 GM/dl 13.5-18.0 Hematocrit 48.1 % 42.0-52.0 MCV 93.6 FL 80.0-97.0 MCH 31.9 pg High 27.0-31.0 MCHC 34.1 g/dL 32.0-36.0 RDW 13.5 % 11.5-14.5 Platelet Count 226 K/ul 140-440 Neutrophils 70.8 % High 50-70 Lymphocytes 18.8 % Low 20-44 Monocytes 8.3 % 2-9 Eosinophil 1.8 % 0-4 Basophil 0.3 % 0-2 Absolute Neutrophils 3.9 K/ul 2.05-7.63 Absolute Lymphocytes 1.0 K/ul 0.8-4.8 Absolute Monocytes 0.5 K/ul 0.1-1.0 Absolute Eosinophils 0.1 K/ul 0.1-0.5 Absolute Basophils 0.0 K/ul 0.0-0.3 Hematology Comment (Comm2) N/A CMP 07/25/2010 [facility] (Do not Use) Sodium 138 mmol/L 135-144 [facility] [place] [address] [phone] Potassium 5.0 mmol/L 3.6-5.2 81 Chloride 103 mmol/L 97-110 Carbon Dioxide 25 mmol/L 23-32 Glucose 109 mg/dL High 70-105 BUN 21 mg/dL 6-22 Creatinine 1.3 mg/dL 0.5-1.3 BUN/CR 16 Ratio Calcium 9.9 mg/dL 8.6-10.2 Total Protein 7.1 g/dL 5.8-7.8 Albumin 4.2 g/dL 3.5-4.8 Globulin 2.9 g/dL 2.0-3.5 A/G Ratio 1.5 Ratio 1.0-2.2 Total Bilirubin 1.5 mg/dL High 0.3-1.2 Alkaline Phosphatase 68 U/L 24-140 Alt 21 U/L 5-45 Ast 20 U/L 12-40 Anion Gap 15 mmol/L 8-16 GFR Calculation 57 mL/min Low 60-175 82 GFR For > 60 mL/min 60-175 83 Lipid Panel 07/25/2010 [facility] (Do not Use) Cholesterol 222 mg/dL High 50-199 [facility] [place] [address] [phone] Triglycerides 50 mg/dL 10-150 HDL 69 mg/dL 29-71 84 Chol/HDL Ratio 3.2 Ratio Low 4.0-6.7 85 VLDL 10 mg/dL 2-29 LDL (Calc) 143 mg/dL High 20-129 86 Laboratory test 07/25/2010 [facility] (Do not Use) PSA 1.94 ng/ml 0.00- 4.00 87 finding [facility] [place] [address] [phone] CBC With Auto Diff 08/16/2009 [facility] (Do not Use) WBC 5.5 K/ul 4.0- 10.9 [facility] [place] [address] [phone] RBC 4.99 M/ul 4.70-6.10 Hemoglobin 15.4 GM/dl 13.5-18.0 Hematocrit 46.3 % 42.0-52.0 MCV 92.8 FL 80.0-97.0 MCH 30.9 pg 27.0-31.0 MCHC 33.3 g/dL 32.0-36.0 RDW 13.0 % 11.5-14.5 Platelet Count 229 K/ul 140-440 Neutrophils 68.4 % 50-70 Lymphocytes 19.8 % Low 20-44 Monocytes 8.8 % 2-9 Eosinophil 2.5 % 0-4 Basophil 0.5 % 0-2 Absolute Neutrophils 3.8 K/ul 2.05-7.63 Absolute Lymphocytes 1.1 K/ul 0.8-4.8 Absolute Monocytes 0.5 K/ul 0.1-1.0 Absolute Eosinophils 0.1 K/ul 0.1-0.5 Absolute Basophils 0.0 K/ul 0.0-0.3 Hematology Comment (Comm2) N/A CMP 08/16/2009 [facility] (Do not Use) Sodium 142 mmol/L 135-144 [facility] [place] [address] [phone] Potassium 4.4 mmol/L 3.6-5.2 Chloride 109 mmol/L 97-110 Carbon Dioxide 29 mmol/L 23-32 Glucose 83 mg/dL 70-105 BUN 22 mg/dL 6-22 Creatinine 1.2 mg/dL 0.5-1.3 BUN/CR 18 Ratio 12.0-20.0 Calcium 9.9 mg/dL 8.6-10.2 88 Total Protein 6.7 g/dL 5.8-7.8 Albumin 4.1 g/dL 3.5-4.8 Globulin 2.6 g/dL 2.0-3.5 A/G Ratio 1.6 Ratio 1.0-2.2 Total Bilirubin 1.2 mg/dL 0.3-1.2 Alkaline Phosphatase 55 U/L 24-140 Alt 20 U/L 5-45 Ast 23 U/L 12-40 Anion Gap 8 mmol/L 8-16 GFR Calculation > 60 mL/min 60-175 89 GFR For > 60 mL/min 60-175 90 Lipid Panel 08/16/2009 [facility] (Do not Use) Cholesterol 222 mg/dL High 50-199 [facility] [place] [address] [phone] Triglycerides 52 mg/dL 10-150 HDL 70 mg/dL 29-71 91 Chol/HDL Ratio 3.2 Ratio Low 4.0-6.7 92 VLDL 10 mg/dL 2-29 LDL (Calc) 142 mg/dL High 20-129 93 Laboratory test 08/16/2009 [facility] (Do not Use) Vitamin D, 25 RESULT 30-100 94 finding [facility] [place] [address] <SEE NOTE> [phone] ng/[phone] PSA 1.80 ng/ml 0.00-4.00 95 CBC With Auto Diff 09/24/2008 [facility] (Do not Use) WBC 6.1 K/ul 4.0- 10.9 [facility] [place] [address] [phone] RBC 5.20 M/ul 4.70-6.10 Hemoglobin 16.2 GM/dl 13.5-18.0 Hematocrit 47.6 % 42.0-52.0 MCV 91.6 FL 80.0-97.0 MCH 31.1 pg High 27.0-31.0 MCHC 34.0 g/dL 32.0-36.0 RDW 13.1 % 11.5-14.5 Platelet Count 227 K/ul 140-440 Neutrophils N/A % 50-70 Lymphocytes N/A % 20-44 Monocytes N/A % 2-9 Eosinophil N/A % 0-4 Basophil N/A % 0-2 Absolute Neutrophils N/A K/ul 2.05-7.63 Absolute Lymphocytes N/A K/ul 0.8-4.8 Absolute Monocytes N/A K/ul 0.1-1.0 Absolute Eosinophils N/A K/ul 0.1-0.5 Absolute Basophils N/A K/ul 0.0-0.3 Hematology Comment (Comm2) N/A CMP 09/24/2008 [facility] (Do not Use) Sodium 138 mmol/L 135-144 [facility] [place] [address] [phone] Potassium 4.0 mmol/L 3.6-5.2 96 Chloride 103 mmol/L 97-110 Carbon Dioxide 26 mmol/L 23-33 Glucose 77 mg/dL 70-105 BUN 22 mg/dL 6-22 Creatinine 1.1 mg/dL 0.5-1.3 BUN/CR 20 Ratio 12.0-20.0 Calcium 9.5 mg/dL 8.6-10.2 Total Protein 6.5 g/dL 5.8-7.8 Albumin 4.0 g/dL 3.5-4.8 Globulin 2.5 g/dL 2.0-3.5 A/G Ratio 1.6 Ratio 1.0-2.2 Total Bilirubin 1.1 mg/dL 0.3-1.2 Alkaline Phosphatase 56 U/L 24-140 Alt 17 U/L 4-45 Ast 20 U/L 12-40 Anion Gap 13 mmol/L 8-16 GFR Calculation > 60 mL/min 97 GFR For > 60 mL/min 98 Lipid Panel 09/24/2008 [facility] (Do not Use) Cholesterol 218 mg/dL High 50-199 [facility] [place] [address] [phone] Triglycerides 43 mg/dL 10-150 HDL 71 mg/dL 29-71 99 Chol/HDL Ratio 3.1 Ratio 100 VLDL 9 mg/dL LDL (Calc) 138 mg/dL High 20-129 101 Laboratory test 09/24/2008 [facility] (Do not Use) PSA 1.59 ng/ml 0.00- 4.00 102 finding [facility] [place] [address] [phone] CRP- High Sensitivity 0.79 mg/L 0.00-3.00 103 Diff For Manual CBC 09/24/2008 [facility] (Do not Use) Blast N/A % [place] [address] [phone] Promyelocyte N/A % Myelocyte N/A % Metamyelocyte N/A % Band 5 % 2-6 Neutrophil 65 % 50-70 Lymphocyte 17 % Low 20-44 Monocyte 7 % 2-9 Eosinophil 6 % High 0-4 Basophil N/A % 0-2 Platelet Estimate NORMAL RBC Morphology NORMAL Anisocytosis N/A Poikilocytosis N/A Macrocytosis N/A Microcytosis N/A Hypochromasia N/A Atypical Lymphs N/A % Hyperchromia N/A Polychromasia N/A Abnormal Cells N/A CBC With Auto Diff 09/20/2007 [facility] (Do not Use) WBC 4.7 K/ul 4.0- 10.9 [place] [address] [phone] RBC 5.01 M/ul 4.70-6.10 Hemoglobin 15.8 GM/dl 13.5-18.0 Hematocrit 46.4 % 42.0-52.0 MCV 92.7 FL 80.0-97.0 MCH 31.6 pg High 27.0-31.0 MCHC 34.1 g/dL 32.0-36.0 RDW 12.6 % 11.5-14.5 Platelet Count 277 K/ul 140-440 Neutrophils 74.6 % High 50-70 Lymphocytes 16.4 % Low 20-44 Monocytes 7.8 % 2-9 Eosinophil 0.9 % 0-4 Basophil 0.3 % 0-2 Absolute Neutrophils 3.5 K/ul 2.05-7.63 Absolute Lymphocytes 0.8 K/ul 0.8-4.8 Absolute Monocytes 0.4 K/ul 0.1-1.0 Absolute Eosinophils 0.0 K/ul Low 0.1-0.5 Absolute Basophils 0.0 K/ul Low 0.1-0.3 CMP 09/20/2007 [facility] (Do not Use) Sodium 139 mmol/L 135-144 [facility] [place] [address] [phone] Potassium 4.8 mmol/L 3.6-5.2 Chloride 107 mmol/L 97-110 Carbon Dioxide 26 mmol/L 23-33 Glucose 101 mg/dL 70-105 BUN 20 mg/dL 6-22 Creatinine 1.2 mg/dL 0.5-1.3 BUN/CR 17 Ratio 12.0-20.0 Calcium 9.7 mg/dL 8.6-10.2 Total Protein 6.4 g/dL 5.8-7.8 Albumin 4.0 g/dL 3.5-4.8 Globulin 2.4 g/dL 2.0-3.5 A/G Ratio 1.7 Ratio 1.0-2.2 Total Bilirubin 1.1 mg/dL 0.3-1.2 Alkaline Phosphatase 61 U/L 24-140 Alt 23 U/L 4-45 Ast 26 U/L 12-40 Anion Gap 11 mmol/L 8-16 GFR Calculation > 60 mL/min 104 GFR For > 60 mL/min 105 Lipid Panel 09/20/2007 [facility] (Do not Use) Cholesterol 222 mg/dL High 50-199 [facility] [place] [address] [phone] Triglycerides 44 mg/dL 10-150 HDL 74 mg/dL High 29-71 Chol/HDL Ratio 3.0 Ratio VLDL 9 mg/dL LDL (Calc) 139 mg/dL High 20-129 Laboratory test 09/20/2007 [facility] (Do not Use) TSH 1.14 uIU/ml 0.34 -5.60 finding [facility] [place] [address] [phone] PSA Free & Total 09/20/2007 [facility] (Do not Use) PSA, 1.3 NG/ML 0.0- 4.0 -LA [facility] [place] [address] [phone] PSA, Free 0.4 NG/ML PSA, % Free - LA 31 % 106 CBC With Auto Diff 09/03/2006 [facility] (Do not Use) WBC 7.9 K/ul 4.0- 10.9 107 [facility] [place] [address] [phone] RBC 4.95 M/ul 4.70-6.10 Hemoglobin 16.0 GM/dl 13.5-18.0 Hematocrit 45.8 % 42.0-52.0 MCV 92.4 FL 80.0-97.0 MCH 32.2 pg High 27.0-31.0 MCHC 34.9 g/dL 32.0-36.0 RDW 12.0 % 11.5-14.5 Platelet Count 211 K/ul 140-440 Neutrophils 77.9 % High 50-70 Lymphocytes 12.6 % Low 20-44 Monocytes 6.3 % 2-9 Eosinophil 3.1 % 0-4 Basophil 0.1 % 0-2 Absolute Neutrophils 6.2 K/ul 2.05-7.63 Absolute Lymphocytes 1.0 K/ul 0.8-4.8 Absolute Monocytes 0.5 K/ul 0.1-1.0 Absolute Eosinophils 0.2 K/ul 0.1-0.5 Absolute Basophils 0.0 K/ul Low 0.1-0.3 CMP 09/03/2006 [facility] (Do not Use) Sodium 137 mmol/L 135-144 [facility] [place] [address] [phone] Potassium 4.8 mmol/L 3.6-5.2 Chloride 105 mmol/L 97-110 Carbon Dioxide 24 mmol/L 23-33 Glucose 91 mg/dL 70-105 BUN 19 mg/dL 6-22 Creatinine 1.2 mg/dL 0.5-1.3 BUN/CR 16 Ratio 12.0-20.0 Calcium 9.6 mg/dL 8.6-10.2 Total Protein 6.9 g/dL 5.8-7.8 Albumin 4.2 g/dL 3.5-4.8 Globulin 2.7 g/dL 2.0-3.5 A/G Ratio 1.6 Ratio 1.0-2.2 Total Bilirubin 1.1 mg/dL 0.3-1.2 Alkaline Phosphatase 65 U/L 24-140 Alt 16 U/L 4-45 Ast 21 U/L 12-40 Anion Gap 13 mmol/L 8-16 GFR White Male 63 GFR White Female 47 GFR Black Male 76 GFR Black Female 56 GFR Guidelines 0 108 Lipid Panel 09/03/2006 [facility] (Do not Use) Cholesterol 210 mg/dL High 50-199 [facility] [place] [address] [phone] Triglycerides 46 mg/dL 10-150 HDL 74 mg/dL High 29-71 Chol/HDL Ratio 2.8 Ratio VLDL 9 mg/dL LDL (Calc) 127 mg/dL 20-129 Laboratory test 09/03/2006 [facility] (Do not Use) PSA 1.31 ng/ml 0.00- 4.00 109 finding [facility] [place] [address] [phone] TSH 1.11 uIU/ml 0.50-6.00 CBC 12/09/2004 [facility] (Do not Use) WBC 4.2 K/ul 4.1-10.9 [facility] [place] [address] [phone] RBC 5.19 M/ul 4.20-6.30 Hemoglobin 16.2 GM/dl High 12.0-16.0 Hematocrit 47.5 % 37.0-51.0 MCV 91.6 FL 80.0-97.0 MCH 31.3 pg 26.0-32.0 MCHC 34.1 g/dL 31.0-36.0 RDW 12.5 % 11.5-14.5 Platelet Count 219 K/ul 140-440 Neutrophils 64.0 % 50-70 Lymphocytes 19.5 % Low 20-44 Monocytes 8.8 % 2-9 Eosinophil 7.3 % High 0-4 Basophil 0.4 % 0-2 Absolute Neutrophils 2.7 K/ul 2.05-7.63 Absolute Lymphocytes 0.8 K/ul 0.8-4.8 Absolute Monocytes 0.4 K/ul 0.1-1.0 Absolute Eosinophils 0.3 K/ul 0.1-0.5 Absolute Basophils 0.0 K/ul Low 0.1-0.3 Laboratory test 12/09/2004 [facility] (Do not Use) Hemoglobin A1c 5.4 % 4.1-6.5 finding [facility] [place], [place] [id number] [phone] TSH 1.75 uIU/ml 0.50-6.00 Lipid Panel 12/09/2004 [facility] (Do not Use) Cholesterol 201 mg/dL High 50-199 [facility] [place], [place] [id number] [phone] Triglycerides 56 mg/dL 30-200 HDL 59 mg/dL 29-71 Chol/HDL Ratio 3.4 Ratio VLDL 11 mg/dL LDL (Calc) 131 mg/dL High 20-129 CMP 12/09/2004 [facility] (Do not Use) Sodium 140 mmol/L 135-145 [facility] [place] [address] [phone] Potassium 5.4 mmol/L High 3.4-5.3 110 Chloride 107 mmol/L 98-111 Carbon Dioxide 29 mmol/L 22-33 Glucose 107 mg/dL High 70-105 BUN 25 mg/dL 6-26 Creatinine 1.2 mg/dL 0.5-1.5 BUN/CR 21 Ratio High 12.0-20.0 Calcium 9.8 mg/dL 8.6-10.3 Total Protein 7.5 g/dL 6.2-8.3 Albumin 4.4 g/dL 3.5-5.0 Globulin 3.1 g/dL 2.7-4.3 A/G Ratio 1.4 Ratio 1.0-2.2 Total Bilirubin 1.1 mg/dL 0.1-1.3 Ast 16 U/L 8-42 Alt 16 U/L 3-42 Alkaline Phosphatase 80 U/L 24-140 Anion Gap 9 mmol/L Low 10-20 Laboratory test 03/14/2004 [facility] (Do not Use) Hemoglobin A1c 5.4 % 4.1-6.5 finding [facility] [place] [address] [phone] Basic (BMP) 03/14/2004 [facility] (Do not Use) Sodium 138 135-145 [facility] mmol/[place] [address] [phone] Potassium 4.3 mmol/L 3.4-5.3 Chloride 108 mmol/L 98-111 Carbon Dioxide 26 mmol/L 22-33 Glucose 100 mg/dL 70-105 BUN 26 mg/dL 6-26 Creatinine 1.3 mg/dL 0.5-1.5 BUN/CR 20 Ratio 12.0-20.0 Anion Gap 8 mmol/L Low 10-20 Calcium 9.2 mg/dL 8.6-10.3 Bilirubin Panel 11/09/2003 [facility] (Do not Use) Direct 0.1 mg/dL 0.0 -0.4 [facility] [place] [address] [phone] Bilirubin, Indirect 1.0 mg/dL Total Bilirubin 1.1 mg/dL 0.1-1.3 Lipid Panel 11/09/2003 [facility] (Do not Use) Cholesterol 193 mg/dL 50 -199 [facility] [place] [address] [phone] Triglycerides 72 mg/dL 30-200 HDL 53 mg/dL 29-71 Chol/HDL Ratio 3.6 Ratio VLDL 14 mg/dL LDL (Calc) 126 mg/dL 20-129 CMP 11/09/2003 [facility] (Do not Use) Sodium 142 mmol/L 135-145 [facility] [place] [address] [phone] Potassium 5.0 mmol/L 3.4-5.3 Chloride 108 mmol/L 98-111 Carbon Dioxide 26 mmol/L 22-33 Glucose 116 mg/dL High 70-105 BUN 24 mg/dL 6-26 Creatinine 1.2 mg/dL 0.5-1.5 BUN/CR 20 Ratio 12.0-20.0 Calcium 9.6 mg/dL 8.6-10.3 Total Protein 7.2 g/dL 6.2-8.3 Albumin 4.2 g/dL 3.5-5.0 Globulin 3.0 g/dL 2.7-4.3 A/G Ratio 1.4 Ratio 1.0-2.2 Total Bilirubin 1.1 mg/dL 0.1-1.3 Ast 21 U/L 8-42 Alt 22 U/L 3-42 Alkaline Phosphatase 72 U/L 24-140 Anion Gap 13 mmol/L 10-20 Laboratory test 11/09/2003 [facility] (Do not Use) PSA 0.91 ng/ml 0.00- 4.00 111 finding [facility] [place] [address] [phone] CBC 11/09/2003 [facility] (Do not Use) WBC 4.0 K/ul Low 4.1-10.9 [facility] [place] [address] [phone] RBC 5.28 M/ul 4.20-6.30 Hemoglobin 16.0 GM/dl 12.0-16.0 Hematocrit 47.8 % 37.0-51.0 MCV 90.4 FL 80.0-97.0 MCH 30.3 pg 26.0-32.0 MCHC 33.5 g/dL 31.0-36.0 RDW 12.2 % 11.5-14.5 Platelet Count 236 K/ul 140-440 Neutrophils 65.6 % 50-70 Lymphocytes 22.6 % 20-44 Monocytes 8.0 % 2-9 Eosinophil 3.3 % 0-4 Basophil 0.5 % 0-2 Absolute Neutrophils 2.7 K/ul 2.05-7.63 Absolute Lymphocytes 0.9 K/ul 0.8-4.8 Absolute Monocytes 0.3 K/ul 0.1-1.0 Absolute Eosinophils 0.1 K/ul 0.1-0.5 Absolute Basophils 0.0 K/ul Low 0.1-0.3 Basic (BMP) 10/31/2002 [facility] (Do not Use) Sodium 139 mmol/L 135- 145 [facility] [place] [address] [phone] Potassium 5.3 mmol/L 3.4-5.3 Chloride 104 mmol/L 98-111 Carbon Dioxide 28 mmol/L 22-33 Glucose 110 mg/dL High 70-105 BUN 18 mg/dL 6-26 Creatinine 1.3 mg/dL 0.5-1.5 BUN/CR 14 Ratio 12.0-20.0 Anion Gap 12 mmol/L 10-20 Calcium 9.8 mg/dL 8.6-10.3 CMP 09/29/2002 [facility] (Do not Use) Sodium 140 mmol/L 135-145 [facility] [place] [address] [phone] Potassium 5.4 mmol/L High 3.4-5.3 112 Chloride 107 mmol/L 98-111 Carbon Dioxide 28 mmol/L 22-33 Glucose 109 mg/dL High 70-105 BUN 23 mg/dL 6-26 Creatinine 1.3 mg/dL 0.5-1.5 BUN/CR 18 Ratio 12.0-20.0 Calcium 9.7 mg/dL 8.6-10.3 Total Protein 7.2 g/dL 6.2-8.3 Albumin 4.5 g/dL 3.5-5.0 Globulin 2.7 g/dL 2.7-4.3 A/G Ratio 1.7 Ratio 1.0-2.2 Total Bilirubin 1.4 mg/dL High 0.1-1.3 Ast 23 U/L 8-42 Alt 17 U/L 3-42 Alkaline Phosphatase 79 U/L 24-140 Lipid Panel 09/29/2002 [facility] (Do not Use) Cholesterol 217 mg/dL High 50-199 [facility] [place] [address] [phone] Triglycerides 48 mg/dL 30-200 HDL 69 mg/dL 29-71 Chol/HDL Ratio 3.1 Ratio VLDL 10 mg/dL LDL (Calc) 138 mg/dL High 20-129 Laboratory test 09/29/2002 [facility] (Do not Use) PSA 0.97 ng/ml 0.00- 4.00 [address] [facility] [place] [address] [phone] TSH 1.37 uIU/ml 0.50-6.00 Ferritin 161.8 ng/ml 22-415 CBC 09/29/2002 [facility] (Do not Use) WBC 3.5 K/ul Low 4.1-10.9 [facility] [place] [address] [phone] RBC 5.47 M/ul 4.2-6.3 Hemoglobin 16.3 GM/dl High 12.0-16.0 Hematocrit 51.0 % 37.0-51.0 MCV 93.3 FL 80-97 MCH 29.9 pg 26.0-32.0 MCHC 32.0 g/dL 31.0-36.0 RDW 12.3 % 11.5-14.5 Platelet Count 179 K/ul 140-440 Neutrophils 66.6 % 50-70 Lymphocytes 20.5 % 20-44 Monocytes 8.1 % 2-9 Eosinophil 4.3 % High 0-4 Basophil 0.5 % 0-2 Absolute Neutrophils 2.3 K/ul 2.05-7.63 Absolute Lymphocytes 0.7 K/ul Low 0.8-4.8 Absolute Monocytes 0.3 K/ul 0.1-1.0 Absolute Eosinophils 0.2 K/ul 0.1-0.5 Absolute Basophils 0.0 K/ul Low 0.1-0.3 1 This sample is drawn by:[facility]. 2 Updated reference range on new analyzer 3 Updated reference range on new analyzer 4 Concerning GFR Guidelines for Americans: Normal function or mild renal disease, if clinically at risk: >/=60 mL/min Moderately decreased: 30-59 Severely decreased: 15-29 Renal failure: <15 5 Concerning GFR Guidelines: Normal function or mild renal disease, if clinically at risk: >/=60 mL/min Moderately decreased: 30-59 Severely decreased: 15-29 Renal failure: <15 Glomerular Filtration Rate (GFR) is estimated based on the MDRD equation, which assumes a steady state for creatinine as recommended by the National Kidney Disease Education Program in conjunction with the National Institutes of Health and the National Kidney Foundation. Clinical conditions in which it may be necessary to measure GFR by using clearance methods include extremes of age and body size, severe malnutrition or obesity, diseases of skeletal muscle, paraplegia or quadriplegia, vegetarian diet, rapidly changing kidney function, and calculation of the dose of potentially toxic drugs that are excreted by the kidneys. 6 Updated Reference Range 7 Per NCEP ATP III Guidelines: Results lower than 40 mg/dL are suggestive of increased risk for coronary artery disease. Results > or=to 60 mg/dL are considered a negative risk factor. 8 Per NCEP ATP III Guidelines: Normal Population <130 Patients with medical conditions: CHD/DM Optimal: <100 Borderline high: 130-159 High: 160-189 Very high: >189 9 Updated reference range on new analyzer 10 Updated reference range on new analyzer 11 Concerning GFR Guidelines for Americans: Normal function or mild renal disease, if clinically at risk: >/=60 mL/min Moderately decreased: 30-59 Severely decreased: 15-29 Renal failure: <15 12 Concerning GFR Guidelines: Normal function or mild renal disease, if clinically at risk: >/=60 mL/min Moderately decreased: 30-59 Severely decreased: 15-29 Renal failure: <15 Glomerular Filtration Rate (GFR) is estimated based on the MDRD equation, which assumes a steady state for creatinine as recommended by the National Kidney Disease Education Program in conjunction with the National Institutes of Health and the National Kidney Foundation. Clinical conditions in which it may be necessary to measure GFR by using clearance methods include extremes of age and body size, severe malnutrition or obesity, diseases of skeletal muscle, paraplegia or quadriplegia, vegetarian diet, rapidly changing kidney function, and calculation of the dose of potentially toxic drugs that are excreted by the kidneys. 13 Updated Reference Range 14 Per NCEP ATP III Guidelines: Results lower than 40 mg/dL are suggestive of increased risk for coronary artery disease. Results > or=to 60 mg/dL are considered a negative risk factor. 15 Per NCEP ATP III Guidelines: Normal Population <130 Patients with medical conditions: CHD/DM Optimal: <100 Borderline high: 130-159 High: 160-189 Very high: >189 16 Updated reference range on new analyzer 17 Updated reference range on new analyzer 18 Concerning GFR Guidelines for Americans: Normal function or mild renal disease, if clinically at risk: >/=60 mL/min Moderately decreased: 30-59 Severely decreased: 15-29 Renal failure: <15 19 Concerning GFR Guidelines: Normal function or mild renal disease, if clinically at risk: >/=60 mL/min Moderately decreased: 30-59 Severely decreased: 15-29 Renal failure: <15 Glomerular Filtration Rate (GFR) is estimated based on the MDRD equation, which assumes a steady state for creatinine as recommended by the National Kidney Disease Education Program in conjunction with the National Institutes of Health and the National Kidney Foundation. Clinical conditions in which it may be necessary to measure GFR by using clearance methods include extremes of age and body size, severe malnutrition or obesity, diseases of skeletal muscle, paraplegia or quadriplegia, vegetarian diet, rapidly changing kidney function, and calculation of the dose of potentially toxic drugs that are excreted by the kidneys. 20 Updated reference range on new analyzer 21 Per NCEP ATP III Guidelines: Results lower than 40 mg/dL are suggestive of increased risk for coronary artery disease. Results > or=to 60 mg/dL are considered a negative risk factor. 22 Per NCEP ATP III Guidelines: Normal Population <130 Patients with medical conditions: CHD/DM Optimal: <100 Borderline high: 130-159 High: 160-189 Very high: >189 23 Updated reference range on new analyzer 24 Updated reference range on new analyzer 25 Concerning GFR Guidelines for Americans: Normal function or mild renal disease, if clinically at risk: >/=60 mL/min Moderately decreased: 30-59 Severely decreased: 15-29 Renal failure: <15 26 Concerning GFR Guidelines: Normal function or mild renal disease, if clinically at risk: >/=60 mL/min Moderately decreased: 30-59 Severely decreased: 15-29 Renal failure: <15 Glomerular Filtration Rate (GFR) is estimated based on the MDRD equation, which assumes a steady state for creatinine as recommended by the National Kidney Disease Education Program in conjunction with the National Institutes of Health and the National Kidney Foundation. Clinical conditions in which it may be necessary to measure GFR by using clearance methods include extremes of age and body size, severe malnutrition or obesity, diseases of skeletal muscle, paraplegia or quadriplegia, vegetarian diet, rapidly changing kidney function, and calculation of the dose of potentially toxic drugs that are excreted by the kidneys. 27 Updated reference range on new analyzer 28 Per NCEP ATP III Guidelines: Results lower than 40 mg/dL are suggestive of increased risk for coronary artery disease. Results > or=to 60 mg/dL are considered a negative risk factor. 29 Per NCEP ATP III Guidelines: Normal Population <130 Patients with medical conditions: CHD/DM Optimal: <100 Borderline high: 130-159 High: 160-189 Very high: >189 30 Concerning GFR Guidelines for Americans: Normal function or mild renal disease, if clinically at risk: >/=60 mL/min Moderately decreased: 30-59 Severely decreased: 15-29 Renal failure: <15 31 Concerning GFR Guidelines: Normal function or mild renal disease, if clinically at risk: >/=60 mL/min Moderately decreased: 30-59 Severely decreased: 15-29 Renal failure: <15 Glomerular Filtration Rate (GFR) is estimated based on the MDRD equation, which assumes a steady state for creatinine as recommended by the National Kidney Disease Education Program in conjunction with the National Institutes of Health and the National Kidney Foundation. Clinical conditions in which it may be necessary to measure GFR by using clearance methods include extremes of age and body size, severe malnutrition or obesity, diseases of skeletal muscle, paraplegia or quadriplegia, vegetarian diet, rapidly changing kidney function, and calculation of the dose of potentially toxic drugs that are excreted by the kidneys. 32 Per NCEP ATP III Guidelines: Results lower than 40 mg/dL are suggestive of increased risk for coronary artery disease. Results > or=to 60 mg/dL are considered a negative risk factor. 33 Per NCEP ATP III Guidelines: Normal Population <130 Patients with medical conditions: CHD/DM Optimal: <100 Borderline high: 130-159 High: 160-189 Very high: >189 34 Beginning 12/13/06 PSA values assayed at [facility] uses chemiluminescence methodology manufactured by [employer] for use on the DXI analyzer. Values obtained with different assay methods or kits can not be used interchangeably. Serum PSA measurement is not an absolute test for malignancy. The PSA value should be used in conjunction with information available from clinical evaluation and other diagnostic procedures. 35 Per NCEP ATP III Guidelines: Results lower than 40 mg/dL are suggestive of increased risk for coronary artery disease. Results > or=to 60 mg/dL are considered a negative risk factor. 36 Per NCEP ATP III Guidelines: Normal Population <130 Patients with medical conditions: CHD/DM Optimal: <100 Borderline high: 130-159 High: 160-189 Very high: >189 37 5.3 No visible hemolysis. 38 Concerning GFR Guidelines for Americans: Normal function or mild renal disease, if clinically at risk: >/=60 mL/min Moderately decreased: 30-59 Severely decreased: 15-29 Renal failure: <15 39 Concerning GFR Guidelines: Normal function or mild renal disease, if clinically at risk: >/=60 mL/min Moderately decreased: 30-59 Severely decreased: 15-29 Renal failure: <15 Glomerular Filtration Rate (GFR) is estimated based on the MDRD equation, which assumes a steady state for creatinine as recommended by the National Kidney Disease Education Program in conjunction with the National Institutes of Health and the National Kidney Foundation. Clinical conditions in which it may be necessary to measure GFR by using clearance methods include extremes of age and body size, severe malnutrition or obesity, diseases of skeletal muscle, paraplegia or quadriplegia, vegetarian diet, rapidly changing kidney function, and calculation of the dose of potentially toxic drugs that are excreted by the kidneys. 40 Concerning GFR Guidelines for Americans: Normal function or mild renal disease, if clinically at risk: >/=60 mL/min Moderately decreased: 30-59 Severely decreased: 15-29 Renal failure: <15 41 Concerning GFR Guidelines: Normal function or mild renal disease, if clinically at risk: >/=60 mL/min Moderately decreased: 30-59 Severely decreased: 15-29 Renal failure: <15 Glomerular Filtration Rate (GFR) is estimated based on the MDRD equation, which assumes a steady state for creatinine as recommended by the National Kidney Disease Education Program in conjunction with the National Institutes of Health and the National Kidney Foundation. Clinical conditions in which it may be necessary to measure GFR by using clearance methods include extremes of age and body size, severe malnutrition or obesity, diseases of skeletal muscle, paraplegia or quadriplegia, vegetarian diet, rapidly changing kidney function, and calculation of the dose of potentially toxic drugs that are excreted by the kidneys. 42 Per NCEP ATP III Guidelines: Results lower than 40 mg/dL are suggestive of increased risk for coronary artery disease. Results > or=to 60 mg/dL are considered a negative risk factor. 43 Per NCEP ATP III Guidelines: Normal Population <130 Patients with medical conditions: CHD/DM Optimal: <100 Borderline high: 130-159 High: 160-189 Very high: >189 44 Beginning 12/13/06 PSA values assayed at [facility] uses an EIA methodology manufactured by [employer] for use on the DXI analyzer. Values obtained with different assay methods or kits can not be used interchangeably. Serum PSA measurement is not an absolute test for malignancy. The PSA value should be used in conjunction with information available from clinical evaluation and other diagnostic procedures. 45 Concerning GFR Guidelines for Americans: Normal function or mild renal disease, if clinically at risk: >/=60 mL/min Moderately decreased: 30-59 Severely decreased: 15-29 Renal failure: <15 46 Concerning GFR Guidelines: Normal function or mild renal disease, if clinically at risk: >/=60 mL/min Moderately decreased: 30-59 Severely decreased: 15-29 Renal failure: <15 Glomerular Filtration Rate (GFR) is estimated based on the MDRD equation, which assumes a steady state for creatinine as recommended by the National Kidney Disease Education Program in conjunction with the National Institutes of Health and the National Kidney Foundation. Clinical conditions in which it may be necessary to measure GFR by using clearance methods include extremes of age and body size, severe malnutrition or obesity, diseases of skeletal muscle, paraplegia or quadriplegia, vegetarian diet, rapidly changing kidney function, and calculation of the dose of potentially toxic drugs that are excreted by the kidneys. 47 Per NCEP ATP III Guidelines: Results lower than 40 mg/dL are suggestive of increased risk for coronary artery disease. Results > or=to 60 mg/dL are considered a negative risk factor. 48 Per NCEP ATP III Guidelines: Normal Population <130 Patients with medical conditions: CHD/DM Optimal: <100 Borderline high: 130-159 High: 160-189 Very high: >189 49 Concerning GFR Guidelines for Americans: Normal function or mild renal disease, if clinically at risk: >/=60 mL/min Moderately decreased: 30-59 Severely decreased: 15-29 Renal failure: <15 50 Concerning GFR Guidelines: Normal function or mild renal disease, if clinically at risk: >/=60 mL/min Moderately decreased: 30-59 Severely decreased: 15-29 Renal failure: <15 Glomerular Filtration Rate (GFR) is estimated based on the MDRD equation, which assumes a steady state for creatinine as recommended by the National Kidney Disease Education Program in conjunction with the National Institutes of Health and the National Kidney Foundation. Clinical conditions in which it may be necessary to measure GFR by using clearance methods include extremes of age and body size, severe malnutrition or obesity, diseases of skeletal muscle, paraplegia or quadriplegia, vegetarian diet, rapidly changing kidney function, and calculation of the dose of potentially toxic drugs that are excreted by the kidneys. 51 Per NCEP ATP III Guidelines: Results lower than 40 mg/dL are suggestive of increased risk for coronary artery disease. Results > or=to 60 mg/dL are considered a negative risk factor. 52 Per NCEP ATP III Guidelines: Normal Population <130 Patients with medical conditions: CHD/DM Optimal: <100 Borderline high: 130-159 High: 160-189 Very high: >189 53 Beginning 12/13/06 PSA values assayed at [facility] uses an EIA methodology manufactured by [employer] for use on the DXI analyzer. Values obtained with different assay methods or kits can not be used interchangeably. Serum PSA measurement is not an absolute test for malignancy. The PSA value should be used in conjunction with information available from clinical evaluation and other diagnostic procedures. 54 Microbiology results SOURCE URINE FINAL RESULT No growth 55 5.3 No visible hemolysis. 56 Concerning GFR Guidelines for Americans: Normal function or mild renal disease, if clinically at risk: >/=60 mL/min Moderately decreased: 30-59 Severely decreased: 15-29 Renal failure: <15 57 Concerning GFR Guidelines: Normal function or mild renal disease, if clinically at risk: >/=60 mL/min Moderately decreased: 30-59 Severely decreased: 15-29 Renal failure: <15 Glomerular Filtration Rate (GFR) is estimated based on the MDRD equation, which assumes a steady state for creatinine as recommended by the National Kidney Disease Education Program in conjunction with the National Institutes of Health and the National Kidney Foundation. Clinical conditions in which it may be necessary to measure GFR by using clearance methods include extremes of age and body size, severe malnutrition or obesity, diseases of skeletal muscle, paraplegia or quadriplegia, vegetarian diet, rapidly changing kidney function, and calculation of the dose of potentially toxic drugs that are excreted by the kidneys. 58 Per NCEP ATP III Guidelines: Results lower than 40 mg/dL are suggestive of increased risk for coronary artery disease. Results > or=to 60 mg/dL are considered a negative risk factor. 59 Per NCEP ATP III Guidelines: Normal Population <130 Patients with medical conditions: CHD/DM Optimal: <100 Borderline high: 130-159 High: 160-189 Very high: >189 60 Beginning 12/13/06 PSA values assayed at [facility] uses an EIA methodology manufactured by [employer] for use on the DXI analyzer. Values obtained with different assay methods or kits can not be used interchangeably. Serum PSA measurement is not an absolute test for malignancy. The PSA value should be used in conjunction with information available from clinical evaluation and other diagnostic procedures. 61 Unless otherwise specified, testing performed [place] [address] 62 SUGGESTED THERAPEUTIC RANGES USING INR FOR STABILIZED ANTICOAGULATED PATIENTS: STANDARD DOSE THERAPY INR 2.0-3.0 DVT, PE, PREVENT DVT OR EMBOLISM HIGH DOSE THERAPY INR 2.5-3.5 PREVENT EMBOLISM FROM MECHANICAL HEART VALVE Unless otherwise specified, testing performed by [facility] [place] [address] 63 Concerning GFR Guidelines: Normal function or mild renal disease, if clinically at risk: >/=60 mL/min Moderately decreased: 30-59 Severely decreased: 15-29 Renal failure: <15 Glomerular Filtration Rate (GFR) is estimated based on the MDRD equation, which assumes a steady state for creatinine as recommended by the National Kidney Disease Education Program in conjunction with the National Institutes of Health and the National Kidney Foundation. Clinical conditions in which it may be necessary to measure GFR by using clearance methods include extremes of age and body size, severe malnutrition or obesity, diseases of skeletal muscle, paraplegia or quadriplegia, vegetarian diet, rapidly changing kidney function, and calculation of the dose of potentially toxic drugs that are excreted by the kidneys. 64 Concerning GFR Guidelines for Americans: Normal function or mild renal disease, if clinically at risk: >/=60 mL/min Moderately decreased: 30-59 Severely decreased: 15-29 Renal failure: <15 65 Concerning GFR Guidelines: Normal function or mild renal disease, if clinically at risk: >/=60 mL/min Moderately decreased: 30-59 Severely decreased: 15-29 Renal failure: <15 Glomerular Filtration Rate (GFR) is estimated based on the MDRD equation, which assumes a steady state for creatinine as recommended by the National Kidney Disease Education Program in conjunction with the National Institutes of Health and the National Kidney Foundation. Clinical conditions in which it may be necessary to measure GFR by using clearance methods include extremes of age and body size, severe malnutrition or obesity, diseases of skeletal muscle, paraplegia or quadriplegia, vegetarian diet, rapidly changing kidney function, and calculation of the dose of potentially toxic drugs that are excreted by the kidneys. 66 Concerning GFR Guidelines for Americans: Normal function or mild renal disease, if clinically at risk: >/=60 mL/min Moderately decreased: 30-59 Severely decreased: 15-29 Renal failure: <15 67 Per NCEP ATP III Guidelines: Results lower than 40 mg/dL are suggestive of increased risk for coronary artery disease. Results > or=to 60 mg/dL are considered a negative risk factor. 68 Per NCEP ATP III Guidelines: Optimal: <100 Near optimal: 100-129 Borderline high: 130-159 High: 160-189 Very high: >189 69 Beginning 12/13/06 PSA values assayed at [facility] uses an EIA methodology manufactured by [employer] for use on the DXI analyzer. Values obtained with different assay methods or kits can not be used interchangeably. Serum PSA measurement is not an absolute test for malignancy. The PSA value should be used in conjunction with information available from clinical evaluation and other diagnostic procedures. 70 This sample is drawn by:[facility] 71 Concerning GFR Guidelines: Normal function or mild renal disease, if clinically at risk: >/=60 mL/min Moderately decreased: 30-59 Severely decreased: 15-29 Renal failure: <15 Glomerular Filtration Rate (GFR) is estimated based on the MDRD equation, which assumes a steady state for creatinine as recommended by the National Kidney Disease Education Program in conjunction with the National Institutes of Health and the National Kidney Foundation. Clinical conditions in which it may be necessary to measure GFR by using clearance methods include extremes of age and body size, severe malnutrition or obesity, diseases of skeletal muscle, paraplegia or quadriplegia, vegetarian diet, rapidly changing kidney function, and calculation of the dose of potentially toxic drugs that are excreted by the kidneys. 72 Concerning GFR Guidelines for Americans: Normal function or mild renal disease, if clinically at risk: >/=60 mL/min Moderately decreased: 30-59 Severely decreased: 15-29 Renal failure: <15 73 Per NCEP ATP III Guidelines: Results lower than 40 mg/dL are suggestive of increased risk for coronary artery disease. Results > or=to 60 mg/dL are considered a negative risk factor. 74 Per NCEP ATP III Guidelines: Optimal: <100 Near optimal: 100-129 Borderline high: 130-159 High: 160-189 Very high: >189 75 This sample is drawn by:[facility]. 76 Concerning GFR Guidelines: Normal function or mild renal disease, if clinically at risk: >/=60 mL/min Moderately decreased: 30-59 Severely decreased: 15-29 Renal failure: <15 Glomerular Filtration Rate (GFR) is estimated based on the MDRD equation, which assumes a steady state for creatinine as recommended by the National Kidney Disease Education Program in conjunction with the National Institutes of Health and the National Kidney Foundation. Clinical conditions in which it may be necessary to measure GFR by using clearance methods include extremes of age and body size, severe malnutrition or obesity, diseases of skeletal muscle, paraplegia or quadriplegia, vegetarian diet, rapidly changing kidney function, and calculation of the dose of potentially toxic drugs that are excreted by the kidneys. 77 Concerning GFR Guidelines for Americans: Normal function or mild renal disease, if clinically at risk: >/=60 mL/min Moderately decreased: 30-59 Severely decreased: 15-29 Renal failure: <15 78 Per NCEP ATP III Guidelines: Results lower than 40 mg/dL are suggestive of increased risk for coronary artery disease. Results > or=to 60 mg/dL are considered a negative risk factor. 79 Per NCEP ATP III Guidelines: Optimal: <100 Near optimal: 100-129 Borderline high: 130-159 High: 160-189 Very high: >189 80 FASTING This sample is drawn by:NB. 81 The difference between the most recent result of 4.4 and the current result of 5.0 exceeds the absolute delta value of 0.5 as defined for this test. 82 Concerning GFR GUIDELINES: Normal Function or Mild Renal Disease, if clinically at risk: >/=60mL/min Moderately decreased: 30-59 Severely decreased: 15-29 Renal Failure: <15 Glomerular Filtration Rate (GFR) is estimated based on the MDRD equation, which assumes a steady state for creatinine as recommended by the National Kidney Disease Education Program in conjunction with the National Institutes of Health and the National Kidney Foundation. Clinical conditions in which it may be necessary to measure GFR by using clearance methods include extremes of age and body size, severe malnutrition or obesity, diseases of skeletal muscle, paraplegia or quadriplegia, vegetarian diet, rapidly changing kidney function, and calculation of the dose of potentially toxic drugs that are excreted by the kidneys. 83 Concerning GFR GUIDELINES: Normal Function or Mild Renal Disease, if clinically at risk: >/=60mL/min Moderately decreased: 30-59 Severely decreased: 15-29 Renal Failure: <15 84 PER NCEP ATP III GUIDELINES: RESULTS LOWER THAN 40 MG/DL ARE SUGGESTIVE OF INCREASED RISK FOR CORONARY ARTERY DISEASE. RESULTS > OR=TO 60 MG/DL ARE CONSIDERED A NEGATIVE RISK FACTOR. 85 INTERPRETATION OF CHOL-HDL RATIO CHD RISK FEMALE MALE VERY HIGH >8.3 >14.3 HIGH 5.6 - 8.3 6.7 - 14.3 AVERAGE 3.7 - 5.6 4.0 - 6.7 BELOW AVERAGE 2.5 - 3.7 2.7 - 4.0 PROTECTED <2.5 <2.7 86 PER NCEP ATP III GUIDELINES: OPTIMAL: <100 NEAR OPTIMAL: 100 - 129 BORDERLINE HIGH: 130 - 159 HIGH: 160 - 189 VERY HIGH: >189 87 BEGINNING 12/13/06, PSA VALUES ASSAYED AT [facility] [facility] USES AN EIA METHODOLOGY MANUFACTURED BY [employer] FOR USE ON THE DXI ANALYZER. VALUES OBTAINED WITH DIFFERENT ASSAY METHODS OR KITS CAN NOT BE USED INTERCHANGEABLY. SERUM PSA MEASUREMENT IS NOT AN ABSOLUTE TEST FOR MALIGNANCY, THE PSA VALUE SHOULD BE USED IN CONJUNCTION WITH INFORMATION AVAILABLE FROM CLINICAL EVALUATION AND OTHER DIAGNOSTIC PROCEDURES. 88 The difference between the most recent result of 9.5 and the current result of 9.9 exceeds the absolute delta value of 0.3 as defined for this test. 89 Concerning GFR GUIDELINES: Normal Function or Mild Renal Disease, if clinically at risk: >/=60mL/min Moderately decreased: 30-59 Severely decreased: 15-29 Renal Failure: <15 Glomerular Filtration Rate (GFR) is estimated based on the MDRD equation, which assumes a steady state for creatinine as recommended by the National Kidney Disease Education Program in conjunction with the National Institutes of Health and the National Kidney Foundation. Clinical conditions in which it may be necessary to measure GFR by using clearance methods include extremes of age and body size, severe malnutrition or obesity, diseases of skeletal muscle, paraplegia or quadriplegia, vegetarian diet, rapidly changing kidney function, and calculation of the dose of potentially toxic drugs that are excreted by the kidneys. 90 Concerning GFR GUIDELINES: Normal Function or Mild Renal Disease, if clinically at risk: >/=60mL/min Moderately decreased: 30-59 Severely decreased: 15-29 Renal Failure: <15 91 PER NCEP ATP III GUIDELINES: RESULTS LOWER THAN 40 MG/DL ARE SUGGESTIVE OF INCREASED RISK FOR CORONARY ARTERY DISEASE. RESULTS > OR=TO 60 MG/DL ARE CONSIDERED A NEGATIVE RISK FACTOR. 92 INTERPRETATION OF CHOL-HDL RATIO CHD RISK FEMALE MALE VERY HIGH >8.3 >14.3 HIGH 5.6 - 8.3 6.7 - 14.3 AVERAGE 3.7 - 5.6 4.0 - 6.7 BELOW AVERAGE 2.5 - 3.7 2.7 - 4.0 PROTECTED <2.5 <2.7 93 PER NCEP ATP III GUIDELINES: OPTIMAL: <100 NEAR OPTIMAL: 100 - 129 BORDERLINE HIGH: 130 - 159 HIGH: 160 - 189 VERY HIGH: >189 94 RESULT GREATER THAN 150 ng/mL 95 BEGINNING 12/13/06, PSA VALUES ASSAYED AT [facility] USES AN EIA METHODOLOGY MANUFACTURED BY [employer] FOR USE ON THE DXI ANALYZER. VALUES OBTAINED WITH DIFFERENT ASSAY METHODS OR KITS CAN NOT BE USED INTERCHANGEABLY. SERUM PSA MEASUREMENT IS NOT AN ABSOLUTE TEST FOR MALIGNANCY, THE PSA VALUE SHOULD BE USED IN CONJUNCTION WITH INFORMATION AVAILABLE FROM CLINICAL EVALUATION AND OTHER DIAGNOSTIC PROCEDURES. 96 The difference between the most recent result of 4.8 and the current result of 4.0 exceeds the absolute delta value of 0.5 as defined for this test. 97 Concerning GFR GUIDELINES: Normal Function or Mild Renal Disease, if clinically at risk: >/=60mL/min Moderately decreased: 30-59 Severely decreased: 15-29 Renal Failure: <15 Glomerular Filtration Rate (GFR) is estimated based on the MDRD equation, which assumes a steady state for creatinine as recommended by the National Kidney Disease Education Program in conjunction with the National Institutes of Health and the National Kidney Foundation. Clinical conditions in which it may be necessary to measure GFR by using clearance methods include extremes of age and body size, severe malnutrition or obesity, diseases of skeletal muscle, paraplegia or quadriplegia, vegetarian diet, rapidly changing kidney function, and calculation of the dose of potentially toxic drugs that are excreted by the kidneys. 98 Concerning GFR GUIDELINES: Normal Function or Mild Renal Disease, if clinically at risk: >/=60mL/min Moderately decreased: 30-59 Severely decreased: 15-29 Renal Failure: <15 99 PER NCEP ATP III GUIDELINES: RESULTS LOWER THAN 40 MG/DL ARE SUGGESTIVE OF INCREASED RISK FOR CORONARY ARTERY DISEASE. RESULTS > OR=TO 60 MG/DL ARE CONSIDERED A NEGATIVE RISK FACTOR. 100 INTERPRETATION OF CHOL-HDL RATIO CHD RISK FEMALE MALE VERY HIGH >8.3 >14.3 HIGH 5.6 - 8.3 6.7 - 14.3 AVERAGE 3.7 - 5.6 4.0 - 6.7 BELOW AVERAGE 2.5 - 3.7 2.7 - 4.0 PROTECTED <2.5 <2.7 101 PER NCEP ATP III GUIDELINES: OPTIMAL: <100 NEAR OPTIMAL: 100 - 129 BORDERLINE HIGH: 130 - 159 HIGH: 160 - 189 VERY HIGH: >189 102 BEGINNING 12/13/06, PSA VALUES ASSAYED AT [facility] USES AN EIA METHODOLOGY MANUFACTURED BY [employer] FOR USE ON THE DXI ANALYZER. VALUES OBTAINED WITH DIFFERENT ASSAY METHODS OR KITS CAN NOT BE USED INTERCHANGEABLY. SERUM PSA MEASUREMENT IS NOT AN ABSOLUTE TEST FOR MALIGNANCY, THE PSA VALUE SHOULD BE USED IN CONJUNCTION WITH INFORMATION AVAILABLE FROM CLINICAL EVALUATION AND OTHER DIAGNOSTIC PROCEDURES. 103 Cardiac Risk Factors: HS-CRP Result: Risk Factor <1.0 LOW 1.0 - 3.0 AVERAGE >3.0 HIGH Patients with persistently unexplained, marked elevation of HS-CRP (greater than 10) after repeated testing should be evaluated for non-cardiovascular etiologies. 104 Concerning GFR GUIDELINES: Normal Function or Mild Renal Disease, if clinically at risk: >/=60mL/min Moderately decreased: 30-59 Severely decreased: 15-29 Renal Failure: <15 Glomerular Filtration Rate (GFR) is estimated based on the MDRD equation, which assumes a steady state for creatinine as recommended by the National Kidney Disease Education Program in conjunction with the National Institutes of Health and the National Kidney Foundation. Clinical conditions in which it may be necessary to measure GFR by using clearance methods include extremes of age and body size, severe malnutrition or obesity, diseases of skeletal muscle, paraplegia or quadriplegia, vegetarian diet, rapidly changing kidney function, and calculation of the dose of potentially toxic drugs that are excreted by the kidneys. 105 Concerning GFR GUIDELINES: Normal Function or Mild Renal Disease, if clinically at risk: >/=60mL/min Moderately decreased: 30-59 Severely decreased: 15-29 Renal Failure: <15 106 % FREE PSA PROBABILITY OF CANCER 0 - 10% 56% 10 - 15% 28% 15 - 20% 20% 20 - 25% 16% GREATER THAN 25% 8% THE FREE PSA PERCENTAGE IS AN AID IN DISTINGUISHING PROSTATE CANCER FROM BENIGN PROSTATIC CONDITIONS IN MEN AGE 50 AND OLDER WITH A TOTAL PSA BETWEEN 3 AND 10 NG/ML AND NEGATIVE DIGITAL RECTAL EXAMINATION FINDINGS. PROSTATIC BIOPSY IS REQUIRED FOR THE DIAGNOSIS OF CANCER. (See: GILSON 1998; 279: [id number]) METHOD USED TO ASSAY BOTH FREE PSA AND TOTAL PSA IS [employer] ACCESS [employer]UN[employer] SYSTEM HYBRITECH FREE PSA AND TOTAL PSA. RESULTS SHOULD NOT BE INTERPRETED ABSOLUTE EVIDENCE FOR THE PRESENCE OR ABSENCE OF MALIGNANT DISEASE. VALUES OBTAINED WITH DIFFERENT ASSAY METHODS OR KITS CANNOT BE USED INTERCHANGEABLY. FREE PSA % GUIDELINES: %FREE PSA PROBABILITY OF CANCER 0-10% 56% 10-15% 28% 15-20% 20% 20-25% 16% GREATER THAN 25% 8% METHOD USED FOR FREE AND TOTAL PSA IS THE [employer] ACCESS IMMUNOASSAY SYSTEM HYBRITECH FREE PSA AND TOTAL PSA. RESULT SHOULD NOT BE INTERPRETED ABSOLUTE EVIDENCE FOR THE PRESENCE OR ABSENCE OF MALIGNA NT DISEASE. VALUES OBTAINED WITH DIFFERENT ASSAY METHODS OR KITS CANNOT BE USED INTERCHANGEABLY. 107 FASTING 108 Normal Function or Mild Renal Disease, if clinically at risk: >/=60 mL/ min Moderately decreased: 30-59 Severely decreased: 15-29 Renal Failure: <15 Glomerular Filtration Rate (GFR) is estimated based on the MDRD equation, which assumes a steady state for creatinine as recommended by the National Kidney Disease Education Program in conjunction with the National Institutes of Health and the National Kidney Foundation. Clinical conditions in which it may be necessary to measure GFR by using clearance methods include extremes of age and body size, severe malnutrition or obesity, diseases of skeletal muscle, paraplegia or quadriplegia, vegetarian diet, rapidly changing kidney function, and calculation of the dose of potentially toxic drugs that are excreted by the kidneys. 109 PSA VALUES ASSAYED AT [facility] USES AN EIA METHODOLOGY MANUFACTURED BY [employer] FOR USE ON THE NEXIA ANALYZER. VALUES OBTAINED WITH DIFFERENT ASSAY METHODS OR KITS CAN NOT BE USED INT ERCHANGEABLY. SERUM PSA MEASUREMENT IS NOT AN ABSOLUTE TEST FOR MALIGNANCY, THE PSA VALUE SHOULD BE USED IN CONJUNCTION WITH INFORMATION AVAILABLE FROM CLINICAL EVALUATION AND OTHER DIAGNOSTIC PROCEDURES. 110 NO VISIBLE HEMOLYSIS 111 PSA VALUES ASSAYED AT [facility] USES AN EIA METHODOLOGY MANUFACTURED BY [employer] FOR USE ON THE NEXIA ANALYZER. VALUES OBTAINED WITH DIFFERENT ASSAY METHODS OR KITS CAN NOT BE USED INT ERCHANGEABLY. SERUM PSA MEASUREMENT IS NOT AN ABSOLUTE TEST FOR MALIGNANCY, THE PSA VALUE SHOULD BE USED IN CONJUNCTION WITH INFORMATION AVAILABLE FROM CLINICAL EVALUATION AND OTHER DIAGNOSTIC PROCEDURES. 112 NO VISIBLE HEMOLYSIS 113 PSA VALUES ASSAYED AT [facility] USES AN EIA METHODOLOGY MANUFACTERED BY [employer] FOR USE ON THE NEXIA ANALYZER. VALUES OBTAINED WITH DIFFERENT ASSAY METHODS OR KITS CAN NOT BE USED INT ERCHANGEABLY. SERUM PSA MEASUREMENT IS NOT AN ABSOLUTE TEST FOR MALIGNANCY, THE PSA VALUE SHOULD BE USED IN CONJUNCTION WITH INFORMATION AVAILABLE FROM CLINICAL EVALUATION AND OTHER DIAGNOSTIC PROCEDURES. PSA VALUES ASSAYED AT [facility] USES AN EIA METHODOLOGY MANUFACTERED BY [employer] FOR USE ON THE NEXIA ANALYZER. VALUES OBTAINED WITH DIFFERENT ASSAY METHODS OR KITS CAN NOT BE USED INT ERCHANGEABLY. SERUM PSA MEASUREMENT IS NOT AN ABSOLUTE TEST FOR MALIGNANCY, THE PSA VALUE SHOULD BE USED IN CONJUNCTION WITH INFORMATION AVAILABLE FROM CLINICAL EVALUATION AND OTHER DIAGNOSTIC PROCEDURES. Procedures Date Code Description Status 10/27/2018 10989 Electrocardiogram Complete Completed 09/14/2017 58816 Inject/Drain Joint/Bursa Major W/Out Ultrasound Completed Guidance 03/30/2017 44672 Electrocardiogram Complete Completed 02/01/2017 69888 Measure Blood Oxygen Level Single Determination Completed 09/16/2016 87324 Electrocardiogram Complete Completed 04/09/2016 87141 Inject/Drain Joint/Bursa Major W/Out Ultrasound Completed Guidance 04/09/2016 75660 Destruction Lesion/Any Method Premalignant Lesions Completed 10/08/2015 51831 Electrocardiogram Complete Completed 11/30/2014 [id number] Mammogram Completed 08/22/2014 85221 Admin Of Inj (Therapeutic Phrophylactic Or Diagnostic Completed Subq Inj 08/21/2014 01274 Admin Of Inj (Therapeutic Phrophylactic Or Diagnostic Completed Subq Inj 08/21/2014 49212 Electrocardiogram Complete Completed 05/24/2012 29467 Electrocardiogram Complete Completed 11/24/2011 56442 Admin Of Inj (Therapeutic Phrophylactic Or Diagnostic Completed Subq Inj 05/22/2011 56718 Electrocardiogram Complete Completed 05/22/2011 89153 Inject/Drain Joint/Bursa Major W/Out Ultrasound Completed Guidance 05/22/2011 44274 Destruction Lesion/Any Method Premalignant Lesions Completed 12/26/2010 52214 Destruction Lesion/Any Method Premalignant Lesions Completed 07/28/2010 09359 X-Ray Chest Two Views Frontal & Lateral Completed 07/25/2010 86593 Electrocardiogram Complete Completed 07/25/2010 26347 Destruction Lesion/Any Method Premalignant Lesions Completed 08/16/2009 63759 Admin Of Inj (Therapeutic Phrophylactic Or Diagnostic Completed Subq Inj 08/16/2009 31826 Electrocardiogram Complete Completed 09/24/2008 60199 Electrocardiogram Complete Completed 09/20/2007 64930 Electrocardiogram Complete Completed 09/03/2006 08419 Electrocardiogram Complete Completed 12/09/2004 55868 Electrocardiogram Complete Completed 12/14/2003 77291 Electrocardiogram Complete Completed 09/29/2002 58379 Electrocardiogram Complete Completed Encounters Type Date Location Provider Dx Diagnosis Office Visit 10/27/2018 Pro Canela PA J02.0 Streptococcal 12:00p pharyngitis R00.0 Tachycardia, unspecified I10 Essential (primary) hypertension J02.9 Acute pharyngitis, unspecified Office Visit 08/30/2018 9:30a Jesika Boyd Z00.00 Encntr for general MD [facility] adult medical exam w/o abnormal findings I10 Essential (primary) hypertension I34.0 Nonrheumatic mitral (valve) insufficiency I65.23 Occlusion and stenosis of bilateral carotid arteries E78.2 Mixed hyperlipidemia J30.9 Allergic rhinitis, unspecified K21.0 Gastro-esophageal reflux disease with esophagitis F52.21 Male erectile disorder Z13.89 Encounter for screening for other disorder R09.82 Postnasal drip L71.8 Other rosacea Z12.5 Encounter for screening for malignant neoplasm of prostate E55.9 Vitamin D deficiency, unspecified N40.1 Benign prostatic hyperplasia with lower urinary tract symp E04.9 Nontoxic goiter, unspecified L80 Vitiligo Z68.27 Body mass index (BMI) 27.0-27.9, adult Office Visit 08/23/2017 11:15a Jesika Boyd I10 Essential ( primary) MD [facility] hypertension E78.2 Mixed hyperlipidemia J30.9 Allergic rhinitis, unspecified N40.1 Benign prostatic hyperplasia with lower urinary tract symp R09.82 Postnasal drip K21.0 Gastro-esophageal reflux disease with esophagitis F52.21 Male erectile disorder Z23 Encounter for immunization Office Visit 03/30/2017 11:00a Jesika Boyd Z00.01 Encounter for MD [facility] general adult medical exam w abnormal findings I10 Essential (primary) hypertension E78.2 Mixed hyperlipidemia J30.9 Allergic rhinitis, unspecified R09.82 Postnasal drip Z12.11 Encounter for screening for malignant neoplasm of colon Z12.5 Encounter for screening for malignant neoplasm of prostate N40.1 Benign prostatic hyperplasia with lower urinary tract symp Office Visit 02/01/2017 2:45p Jesika Boyd MD R09.82 Postnasal drip J30.9 Allergic rhinitis, unspecified J33.9 Nasal polyp, unspecified J01.00 Acute maxillary sinusitis, unspecified Office Visit 01/11/2017 9:45a Jesika Boyd I10 Essential ( primary) MD [facility] hypertension R09.82 Postnasal drip N40.1 Benign prostatic hyperplasia with lower urinary tract symp J30.9 Allergic rhinitis, unspecified Office Visit 12/14/2016 9:45a Jesika Boyd Z00.00 Encntr for general MD [facility]her adult medical exam w/o abnormal findings R09.82 Postnasal drip I10 Essential (primary) hypertension E78.2 Mixed hyperlipidemia N40.1 Benign prostatic hyperplasia with lower urinary tract symp Office Visit 09/16/2016 8:20a Breanna Tillman, Z01.818 Encounter for other PA preprocedural examination 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, bilateral I10 Essential (primary) hypertension E78.00 Pure hypercholesterolemia, unspecified Z12.5 Encounter for screening for malignant neoplasm of prostate Office Visit 04/09/2016 8:00a Jesika Boyd I10 Essential ( primary) MD [facility] hypertension E78.0 Pure hypercholesterolemia L57.0 Actinic keratosis K21.0 Gastro-esophageal reflux disease with esophagitis M70.61 Trochanteric bursitis, RIGHT hip Z00.01 Encounter for general adult medical exam w abnormal findings Office Visit 10/08/2015 8:30a Jesika Boyd Z00.01 Encounter for MD Asher general adult medical exam w abnormal findings I10 Essential (primary) hypertension E78.0 Pure hypercholesterolemia L80 Vitiligo N40.0 Enlarged prostate without lower urinary tract symptoms K21.0 Gastro-esophageal reflux disease with esophagitis L71.8 Other rosacea Z12.11 Encounter for screening for malignant neoplasm of colon Z12.5 Encounter for screening for malignant neoplasm of prostate J32.9 Chronic sinusitis, unspecified Z23 Encounter for immunization Z68.28 Body mass index (BMI) 28.0-28.9, adult Office Visit 02/19/2015 8:00a Otilia Romo, 272.0 Hypercholesterolemia Pure Jesika Sterling MD 401.1 Hypertension Benign 600.20 Benign Localized Hyperplasia Prostate W/O Urinary Obstruct 786.59 Pain Chest Other 473.9 Sinusitis Chronic Unspec 709.01 Vitiligo Office Visit 01/21/2015 11:40a Maura Shepard MD 478.9 Upper Resp Tract Disease Other & Unspec Office Visit 11/23/2014 11:15a Jesika Boyd 786.59 Pain Chest Other MD Asher 611.72 Lump Or Mass Breast Office Visit 08/21/2014 8:30a Jesika Boyd MD V70.0 Exam ( Adult) General Medical Routine AT Health Care Facility 401.1 Hypertension Benign 427.69 Premature Beats Other 272.0 Hypercholesterolemia Pure 473.9 Sinusitis Chronic Unspec V43.65 Knee Replacement By Other Means 780.52 Sleep Disturbance, Insomnia Unspecified 600.20 Benign Localized Hyperplasia Prostate W/O Urinary Obstruct 530.11 Esophagitis Reflux 695.3 Rosacea V76.51 Special Screening For Malignant Neoplasms Colon V04.81 Need For Prophylactic Vaccination & Inoculation/Influenza 424.0 Mitral Valve Disorder 281.1 Vitamin B12 Deficiency Anemia Other 275.2 Metabolic Disorder Magnesium Office Visit 10/27/2013 10:00a Jesika Boyd V72.81 Examination MD [facility]her Preoperative Cardiovascular 427.69 Premature Beats Other 401.1 Hypertension Benign 473.9 Sinusitis Chronic Unspec 272.0 Hypercholesterolemia Pure Office Visit 10/02/2013 11:15a Jesika Boyd 473.9 Sinusitis Chronic MD [facility]her Unspec Office Visit 08/07/2013 2:45p Jesika Boyd 401.1 Hypertension Isac Sterling MD 272.0 Hypercholesterolemia Pure V43.65 Knee Replacement By Other Means 780.52 Sleep Disturbance, Insomnia Unspecified 788.43 Nocturia 600.20 Benign Localized Hyperplasia Prostate W/O Urinary Obstruct Office Visit 06/27/2013 9:00a Maura Shepard, V72.84 Examination MD Preoperative Unspec V76.44 Screening For Malig Ishmael Prostate 272.0 Hypercholesterolemia Pure 401.0 Hypertension Malignant Office Visit 05/24/2012 8:45a Jesika Boyd MD V70.0 Exam ( Adult) General Medical Routine AT Health Care Facility 530.11 Esophagitis Reflux 401.1 Hypertension Benign 695.3 Rosacea V76.51 Special Screening For Malignant Neoplasms Colon V76.44 Screening For Malig Ishmael Prostate 790.21 Impaired Fasting Glucose 427.69 Premature Beats Other 272.0 Hypercholesterolemia Pure 333.1 Tremor Essential & Other Forms 600.20 Benign Localized Hyperplasia Prostate W/O Urinary Obstruct Office Visit 05/06/2012 9:30a Alexandro Bal MD 388.70 Otalgia & Earache Unspec 381.01 Otitis Media Serous Acute Office Visit 03/18/2012 8:00a Jesika Boyd MD 695.3 Rosacea 530.11 Esophagitis Reflux 401.1 Hypertension Benign Office Visit 11/24/2011 9:15a Jesika Boyd MD 401.1 Hypertension Benign 272.0 Hypercholesterolemia Pure 790.21 Impaired Fasting Glucose 427.69 Premature Beats Other 729.5 Pain In Limb 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 V76.44 Screening For Malig Ishmael Prostate V05.8 Single Disease Spec Other Vaccination & Inoculation V04.89 Need For Prophylactic Vaccination & Inoculation Other Virus Office Visit 07/16/2011 12:50p Otilia Jim V04.81 Need For Prophylactic Patricia Pizarro RN Vaccination & MS INFORMATICS COORDINATOR Inoculation/Influenza 729.5 Pain In Limb Office Visit 05/22/2011 8:45a Jesika Boyd MD V70.0 Exam ( Adult) General Medical Routine AT Health Care Facility 401.1 Hypertension Benign 272.0 Hypercholesterolemia Pure 790.21 Impaired Fasting Glucose V76.44 Screening For Malig Ishmael Prostate 302.72 Psychosexual Dysfunction W/ Inhibited Sexual Excitement 600.20 Benign Localized Hyperplasia Prostate W/O Urinary Obstruct 427.89 Cardiac Dysrhythmia Other 702.0 Actinic Keratosis 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 V76.51 Special Screening For Malignant Neoplasms Colon Office Visit 12/26/2010 9:45a Jesika Boyd MD 401.1 Hypertension Benign 272.0 Hypercholesterolemia Pure 790.21 Impaired Fasting Glucose 302.72 Psychosexual Dysfunction W/ Inhibited Sexual Excitement 702.0 Actinic Keratosis 695.3 Rosacea 477.0 Rhinitis Allergic Due To Pollen Office Visit 09/05/2010 9:45a Jesika Boyd MD 401.1 Hypertension Benign 600.20 Benign Localized Hyperplasia Prostate W/O Urinary Obstruct 272.0 Hypercholesterolemia Pure 302.72 Psychosexual Dysfunction W/ Inhibited Sexual Excitement 790.21 Impaired Fasting Glucose Office Visit 07/25/2010 8:30a Jesika Boyd MD V70.0 Exam ( Adult) General Medical Routine AT Health Care Facility 401.1 Hypertension Benign 477.0 Rhinitis Allergic Due To Pollen V76.44 Screening For Malig Ishmael Prostate V76.51 Special Screening For Malignant Neoplasms Colon 302.72 Psychosexual Dysfunction W/ Inhibited Sexual Excitement 794.31 Electrocardiogram (ECG) (EKG) Abnormal V04.81 Need For Prophylactic Vaccination & Inoculation/Influenza 702.0 Actinic Keratosis 272.0 Hypercholesterolemia Pure 600.20 Benign Localized Hyperplasia Prostate W/O Urinary Obstruct Office Visit 01/16/2010 8:15a Patricia Rob C, 465.9 URI Upper Respiratory RN [employer] COORDINATOR Infections Acute Unspec Sites 786.2 Cough Office Visit 08/16/2009 9:15a Jesika Boyd MD V70.0 Exam ( Adult) General Medical Routine AT Health Care Facility 401.1 Hypertension Benign 272.0 Hypercholesterolemia Pure V76.44 Screening For Malig Ishmael Prostate V76.51 Special Screening For Malignant Neoplasms Colon 477.0 Rhinitis Allergic Due To Pollen V04.81 Need For Prophylactic Vaccination & Inoculation/Influenza Office Visit 09/24/2008 12:30p Jesika Boyd MD 401.1 Hypertension Benign 272.0 Hypercholesterolemia Pure 302.72 Psychosexual Dysfunction W/ Inhibited Sexual Excitement V58.66 Long-Term Use Of Aspirin V76.44 Screening For Malig Ishmael Prostate V76.51 Special Screening For Malignant Neoplasms Colon V70.0 Exam (Adult) General Medical Routine AT Health Care Facility V04.81 Need For Prophylactic Vaccination & Inoculation/Influenza Office Visit 09/20/2007 8:30a Jesika Boyd MD V70.0 Exam ( Adult) General Medical Routine AT Health Care Facility 401.1 Hypertension Benign 477.0 Rhinitis Allergic Due To Pollen 272.0 Hypercholesterolemia Pure V76.44 Screening For Malig Ishmael Prostate V06.1 Skbwopazsq-Mfgleun-Knbxdyoi Combined (DTaP) V76.51 Special Screening For Malignant Neoplasms Colon 302.72 Psychosexual Dysfunction W/ Inhibited Sexual Excitement 791.9 Urine Examination Other Nonspecific Findings 471.0 Polyp Nasal Cavity V04.81 Need For Prophylactic Vaccination & Inoculation/Influenza Office Visit 07/28/2007 1:00p Patricia Rob, 477.0 Rhinitis Allergic Due RN MS INFORMATICS COORDINATOR To Pollen 470 Deviated Nasal Septum Office Visit 07/18/2007 12:10p Alexandro Bal MD 477.0 Rhinitis Allergic Due To Pollen 470 Deviated Nasal Septum Office Visit 07/11/2007 9:40a Alexandro Bal MD 477.0 Rhinitis Allergic Due To Pollen 470 Deviated Nasal Septum Office Visit 07/04/2007 9:15a Patricia Rob, 465.9 URI Upper Respiratory RN MS INFORMATICS COORDINATOR Infections Acute Unspec Sites Office Visit 09/03/2006 1:00p Jesika Boyd 401.1 Hypertension Isac Sterling MD 794.31 Electrocardiogram (ECG) (EKG) Abnormal 272.0 Hypercholesterolemia Pure V76.44 Screening For Malig Ishmael Prostate V76.51 Special Screening For Malignant Neoplasms Colon 302.72 Psychosexual Dysfunction W/ Inhibited Sexual Excitement 726.71 Bursitis Or Tendinitis Achilles 240.9 Goiter Unspec Office Visit 07/10/2005 3:45p Jesika Boyd MD 401.1 Hypertension Benign 836.0 Dislocation Knee Tear Of Medial Cartilage Or Meniscus Curren 726.90 Enthesopathy Unspec Site 726.71 Bursitis Or Tendinitis Achilles Office Visit 12/19/2004 7:50a Jesika Boyd MD 959.19 Other Injury Of Other Sites Of Trunk 922.2 Contusion Abdominal Wall Office Visit 12/09/2004 8:00a Otilia Romo 272.0 Hypercholesterolemia Lavinia Sterling MD 401.1 Hypertension Benign 461.0 Sinusitis Acute Maxillary 790.29 Other Abnormal Glucose 240.9 Goiter Unspec 780.79 Malaise And Fatigue Other Office Visit 07/15/2004 8:20a Jesika Boyd MD 401.1 Hypertension Benign 607.3 Priapism Office Visit 03/14/2004 9:00a Jesika Boyd MD 401.1 Hypertension Benign 790.21 Impaired Fasting Glucose Office Visit 12/14/2003 9:20a Otilia Romo 272.0 Hypercholesterolemia Lavinia Sterling MD 600.0 Hypertrophy Benign Of Prostate 427.69 Premature Beats Other 401.1 Hypertension Benign Office Visit 11/09/2003 9:20a Otilia Romo 272.0 Hypercholesterolemia Lavinia Sterling MD 401.1 Hypertension Benign 780.79 Malaise And Fatigue Other 607.3 Priapism V76.44 Screening For Malig Ishmael Prostate Office Visit 10/31/2002 8:50a Jesika Boyd MD 401.1 Hypertension Benign 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 Office Visit 09/29/2002 9:00a Jesika Boyd MD 401.1 Hypertension Benign 794.31 Electrocardiogram (ECG) (EKG) Abnormal 255.4 Corticoadrenal Insufficiency 272.2 Hyperlipidemia Mixed 781.0 Abnormal Involuntary Movements V76.44 Screening For Malig Ishmael Prostate 244.9 Hypothyroidism Other Unspec Office Visit 08/26/2001 9:30a Jesika Boyd MD Office Visit 12/16/2000 8:00a Jesika Boyd MD Plan of Treatment 12/13/2018 - Jesika Romo MDZ01.818 Encounter for other preprocedural [id number] Trochanteric bursitis, LEFT hipFollow up:4 mosR09.82 Postnasal dripZ68.26 Body mass index (BMI) 26.0-26.9, adult
--- OUTSIDE RECORDS SUMMARY | 2018-12-30 13:56 | XMS REPORT | Continuity of Care Document ---
:1935 Author Organization [facility] Care Team Providers Name Role Phone ALETHA EASTMAN Primary Care Physician Allergies and Intolerances No Known Allergies Medications RxNorm Medication Dose Route Instructions Start End Status Date Date 86631124 24 HR metoprolol 25 mg oral orally daily Active succinate 25 MG Extended Release Oral Tablet 1191 Aspirin 81 mg oral orally daily Active (Patient and spouse has no idea what his meds are - list current per pharmacy fill and [facility] ions.) 5901005 Azelastine 1 spray Intranasal intranasally 2 Active hydrochloride 0.206 times per day MG/ACTUAT Metered (Patient and Dose Nasal Arabi spouse has no idea what his meds are - list current per pharmacy fill and [facility] ions.) 6660387 flunisolide 0.025 2 spray Intranasal intranasally Active MG/ACTUAT Metered daily (Patient Dose Nasal Arabi and spouse has no idea what his meds are - list current per pharmacy fill and [facility] ions.) guaifenesin ER 1,200 1200 MG ORAL BID EVERY 12 Active mg tablet, extended HOURS (15 release 12 hr Days) 19780522 Hydrochlorothiazide 1 tab oral orally daily Active 12.5 MG / Lisinopril (Patient and 10 MG Oral Tablet spouse has no idea what his meds are - list current per pharmacy fill and [facility] ions.) Minocycline Oral 100 mg oral orally daily Active (Patient and spouse has no idea what his meds are - list current per pharmacy fill and [facility] ions.) 20011121 montelukast 10 MG 10 mg oral orally daily Active Oral Tablet (Patient and spouse has no idea what his meds are - list current per pharmacy fill and [facility] ions.) Multivitamins 1 tab-cap oral orally every Active day (Patient and spouse has no idea what his meds are - list current per pharmacy fill and [facility] ions.) 7646 Omeprazole 20 mg oral orally daily Active (Patient and spouse has no idea what his meds are - list current per pharmacy fill and [facility] ions.) Penicillin VK Oral 500 oral orally 3 times Active milligram per day (10 019 mg days) (Patient and spouse has no idea what his meds are - list current per pharmacy fill and [facility] ions.) 131628 Rosuvastatin calcium 10 mg oral orally daily Active 10 MG Oral Tablet (Patient and spouse has no idea what his meds are - list current per pharmacy fill and [facility] ions.) 807305 tadalafil 5 MG Oral 5 mg oral orally daily Active Tablet (Patient and spouse has no idea what his meds are - list current per pharmacy fill and [facility] ions.) Problems Code Code System Problem Name Start Date End Date Status 336736750 SNOMED-CT Syncope 07/31/2018 Active 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 32720812 SNOMED-CT Hypertensive disorder U Active 84618442 SNOMED-CT Hypercholesterolemia U Active 91401510 SNOMED-CT Disorder of skin U Completed 596470917 SNOMED-CT Gastroesophageal reflux disease U Active 7023901 SNOMED-CT Arthritis U Active 233083109 SNOMED-CT Allergy to pollen U U Active 710084854 SNOMED-CT Gastroesophageal reflux disease U U Active 90169547 SNOMED-CT Hyperlipidemia U U Active 26849964 SNOMED-CT Hypertensive disorder U U Active ROSACIA U Active 939866182 SNOMED-CT Arrhythmia Active Procedures Code Code System Procedure Date 56883428 SNOMED CT Tonsillectomy and adenoidectomy U CARDIAC CATH 08/2010 Results No data in the system Social History Code Code System Social History Description Dates Observed Observation 736370907 SNOMED CT Current Smoking Unknown if ever Status smoked M AdministrativeGender Sex Assigned At Male Vital Signs No data in the system Goals Section No data in the system Health Concerns No data in the systemEncounter Diagnosis Date Code Code System Diagnosis Status J02.0 ICD10 STREPTOCOCCAL PHARYNGITIS Active Advance Directives *RHIO - CONSENT IS YES Directive Type Effective Date Cancer Registry Coordinator Notes Supporting Document Name Address Phone No Directive Type 07/03/2015 7:47:16 Not Specified Not Specified Not Specified None No specified [facility] Directive Type Effective Date Cancer Registry Coordinator Notes Supporting Document Name Address Phone No Directive 10/27/2018 Not Specified Not Specified Not Gris Ellis Yes Type 5:45:00 PM Specified [phone], specified Josafat Ellis Family History Relationship: Father Health Problem Age At Onset Notes AMI - Acute myocardial infarction (Acute myocardial infarction) Functional Status No data in the system Immunizations Vaccine Code Code System Vaccine Name Date Status UTD Completed FLU SHOT FALL 2012 Completed PNEUMONIA VACCINE 2011 Completed Medical Equipment Implants Implanted Date Implant Site [place] 07/12/2013 tibial baseplate left knee 07/12/2013 femoral component left knee 07/12/2013 patella component leftknee 07/12/2013 smartset cement left knee 07/12/2013 articular insert left knee Mental Status No data in the system Assessment and Plan Assessments No data in the systemPlan Of Treatment No data in the systemPending Tests No data in the system Hospital Discharge Instructions No data in the system Reason for Visit No data in the system
--- NOTE | 2018-12-30 14:55 | ED ---
Psychiatric Complaint - HPI Summary HPI Summary: An 83 y/o male accompanied by family presents to [facility] with a chief complaint of requesting a Mental health evaluation today. The patient reports that in July 2018 he had a syncopal episode while at a wedding. He claims that his syncopal episode was due to dehydration. He notes that since then he has been to the hospital 3 times in the past 6 months due to anxiety. He believes that he has dementia since he reports he has trouble remembering names. He was most recently discharged from [facility] on 12/28/18 and had his medications changed. He was diagnosed with major depression and anxiety disorder and has been taking Ativan and Remeron. Starting on 12/26/18 he has had nervous tremors. He claims that he always shook a little when nervous, but now his tremors are more extreme. Vital signs while in room - HR: 83 bpm, O2 Sat: 95, BP: 136/73. - History Of Current Complaint Chief Complaint: EDPsychosocial Time Seen by Provider: 12/30/18 14:48 Hx Obtained From: Patient, Family/Aesthetics Instructor Onset/Duration: Gradual Onset, Lasting Weeks, Still Present Timing: Constant Severity Initially: Mild Severity Currently: Mild Character: Depressed, Anxious Aggravating Factor(s): Nothing Alleviating Factor(s): Nothing Associated Signs And Symptoms: Negative: Hostile Related History: Positive For: Prior Psychiatric Issues - Allergies/Home Medications Allergies/Adverse Reactions: Allergies Allergy/AdvReac Type Severity Reaction Status Date / Time No Known Allergies Allergy Verified 12/19/18 10:18 Home Medications: Home Medications Aspirin EC TAB* [Ecotrin EC Low Dose 81 MG*] 81 mg PO DAILY 12/30/18 [History Confirmed 12/30/18] Diclofenac 1% GEL (NF) [Voltaren 1% GEL (NF)] 1 applic TOPICAL QID PRN 12/30/18 [History Confirmed 12/30/18] Flunisolide NASAL (NF) [Nasalide NASAL (NF)] 2 spray BOTH NARES DAILY 12/30/18 [ History Confirmed 12/30/18] LORazepam TAB(*) [Ativan 0.5 MG TAB (*)] 0.25 mg PO BEDTIME PRN 12/30/18 [ History Confirmed 12/30/18] Metoprolol Succinate XL TAB* [Toprol XL TAB*] 25 mg PO DAILY 12/30/18 [History Confirmed 12/30/18] Mirtazapine TAB* [Remeron TAB*] 15 mg PO BEDTIME 12/30/18 [History Confirmed ] Montelukast Sodium TAB* [Singulair TAB*] 10 mg PO DAILY 12/30/18 [History Confirmed 12/30/18] Omeprazole CAP (NF) [Prilosec CAP* 20 MG] 20 mg PO DAILY 12/30/18 [History Confirmed 12/30/18] Rosuvastatin (NF) [Crestor (NF)] 10 mg PO DAILY 12/30/18 [History Confirmed ] Sertraline* [Zoloft*] 25 mg PO DAILY 12/30/18 [History Confirmed 12/30/18] Tadalafil 5 mg PO DAILY 12/30/18 [History Confirmed 12/30/18] PMH/Surg Hx/FS Hx/Imm Hx Cardiovascular History: Reports: Hx Hypertension - SLIGHT ELEVATION AT TIMES, Other Cardiovascular Problems/Disorders - EXTRA HEART BEAT GI History: Reports: Hx Gastroesophageal Reflux Disease - ON DAILY MEDS Musculoskeletal History: Reports: Hx Arthritis - LEFT HIP Sensory History: Reports: Hx Cataracts - LEFT EYE, Hx Contacts or Glasses - READING Denies: Hx Hearing Aid Opthamlomology History: Reports: Hx Cataracts - LEFT EYE, Hx Contacts or Glasses - READING Psychiatric History: Reports: Hx Anxiety - NO MEDS - Surgical History Surgery Procedure, Year, and Place: 2013 LEFT TOTAL KNEE [facility]. 2016 RIGHT EYE CATARACT [facility] Hx Anesthesia Reactions: No Infectious Disease History: No Infectious Disease History: Denies: Traveled Outside the [place] in Last 30 Days - Social History Alcohol Use: Occasionally Alcohol Amount: 1-2 DRINKS/MONTH Substance Use Type: Reports: None Smoking Status (MU): Never Smoked Tobacco Have You Smoked in the Last Year: No Review of Systems Negative: Fever Positive: Anxious - anxious tremors, thinks he has dementia All Other Systems Reviewed And Are Negative: Yes Physical Exam - Summary Physical Exam Summary: Appearance: The patient is well-nourished in no acute distress and in no acute pain. Skin: The skin is warm and dry and skin color reflects adequate perfusion. HEENT: The head is normocephalic and atraumatic. The pupils are equal and reactive. The conjunctivae are clear and without drainage. Nares are patent and without drainage. Mouth reveals moist mucous membranes and the throat is without erythema and exudate. The external ears are intact. The ear canals are patent and without drainage. The tympanic membranes are intact. Neck: The neck is supple with full range of motion and non-tender. There are no carotid bruits. There is no neck vein distension. Respiratory: Chest is non-tender. Lungs are clear to auscultation and breath sounds are symmetrical and equal. Cardiovascular: Heart is regular rate and rhythm. There is no murmur or rub auscultated. There is no peripheral edema and pulses are symmetrical and equal. Abdomen: The abdomen is soft and non-tender. There are normal bowel sounds heard in all four quadrants and there is no organomegaly palpated. Musculoskeletal: There is no back tenderness noted. Extremities are non-tender with full range of motion. There is good capillary refill. There is no peripheral edema or calf tenderness elicited. Neurological: Resting and intention tremor. Patient is alert and oriented to person, place and time. The patient has symmetrical motor strength in all four extremities. Cranial nerves are grossly intact. Deep tendon reflexes are symmetrical and equal in all four extremities. Psychiatric: The patient has an appropriate affect and does not exhibit any anxiety or depression. Triage Information Reviewed: Yes Vital Signs On Initial Exam: Initial Vitals Temp Pulse Resp BP Pulse Ox 97.7 F 87 16 143/86 94 12/30/18 13:21 12/30/18 13:21 12/30/18 13:21 12/30/18 13:21 12/30/18 13:21 Vital Signs Reviewed: Yes Diagnostics - Vital Signs Vital Signs Temp Pulse Resp BP Pulse Ox 12/30/18 13:21 97.7 F 87 16 143/86 94 - Laboratory Result Diagrams: 12/30/18 15:08 12/30/18 15:08 Lab Statement: Any lab studies that have been ordered have been reviewed, and results considered in the medical decision making process. Re-Evaluation - Re-Evaluation First Eval Re-Evaluation Time: 16:02 Change: Unchanged Comment: Pt is medically cleared Course/Dx - Course Course Of Treatment: Mr. Ortega presents a couple days after being discharged from the [facility] unit. It's ever since July he's been having anxiety attacks and developing a tremor. He is convinced that he has dementia. His PCP has ordered an outpatient MRI for him but apparently he was afraid to go back home today so he was sent into the emergency department. He has a resting and intentional tremor was nontoxic in in appearance with stable vital signs. Labs were obtained and were unremarkable and he was medically cleared for mental health eval. They saw him and agreed with the outpatient workup and discharged him in stable condition. - Differential Dx/Clinical Impression Provider Diagnosis: Anxiety - Physician Notifications Discussed Care Of Patient With: Semaj Hansen Time Discussed With Above Provider: 18:55 Instructed by Provider To: Other - Per Mental health jig boring machine set up operator, Dr. Hansen has cleared the patient for discharge. Discharge - Sign-Out/Discharge Documenting (check all that apply): Patient Departure - DC Patient Received Moderate/Deep Sedation with Procedure: No - Discharge Plan Condition: Stable Disposition: HOME Referrals: No Primary Care Phys,NOPCP [Primary Care Provider] - - Billing Disposition and Condition Condition: STABLE Disposition: Home - Attestation Statements Document Initiated by Radha: Yes Documenting Scribe: Luis Miguel Mcknight Provider For Whom Radha is Documenting (Include Credential): Fernie Lomeli MD Scribe Attestation: I, Luis Miguel Mcknight, scribed for Fernie Lomeli MD on 12/30/18 at 1858. Scribe Documentation Reviewed: Yes Provider Attestation: The documentation as recorded by the Luis Miguel sanz accurately reflects the service I personally performed and the decisions made by me, Fernie Lomeli MD Status of Scribe Document: Viewed
[2018-12-30] MEDS ORDERED: Nicotine Inhaler* 10 MG AMP INH PRN (14:59)
[2018-12-30 15:16] LABS: ABS Basophils 0.1 10^3/ul (0-0.2); ABS Eosinophils 0.1 10^3/ul (0-0.6); ABS Monocytes 0.7 10^3/ul (0-0.8); ABS Neutrophils 4.9 10^3/ul (1.5-7.7); ABS Nucleated RBC 0 10^3/ul; Eosinophil % 1.9 %; Hematocrit 45 % (36-46); Hemoglobin 15.3 g/dL (14.0-18.0); Lymphocyte % 15.2 %; Mean Corpuscular HGB Conc 34 g/dL (31-36); Mean Corpuscular Hemoglobin 30 pg (27-31); Mean Corpuscular Volume 89 fL (80-94); Mean Platelet Volume 8.5 fL (7.4-10.4); Nucleated Red Blood Cells % 0.1; Platelet Count 201 10^3/uL (150-450); Red Blood Count 5.03 10^6 /uL (4.18-5.48); Red Cell Distribution Width 14 % (10.5-15); White Blood Count 6.7 10^3/uL (3.5-10.8)
[2018-12-30 15:29] LABS: Urine Appearance Clear; Urine Bilirubin Negative (Negative); Urine Blood Negative (Negative); Urine Color Yellow; Urine Glucose Negative (Negative); Urine Ketones Negative (Negative); Urine Nitrite Negative (Negative); Urine Protein Negative (Negative); Urine Specific Gravity 1.009 (1.010-1.030); Urine Urobilinogen Negative (Negative)
[2018-12-30 15:32] LABS: ALT 14 U/L (7-52); AST 16 U/L (13-39); Albumin 3.8 g/dL (3.2-5.2); Albumin/Globulin Ratio 1.6 (1-3); Alkaline Phosphatase 81 U/L (34-104); Anion Gap 8 mmol/L (2-11); Blood Urea Nitrogen 34 mg/dL (6-24); CO2 Carbon Dioxide 24 mmol/L (22-32); Chloride 104 mmol/L (101-111); EGFR African American 60.6 (>60); Globulin 2.4 g/dL (2-4); Glucose 110 mg/dL (70-100); Sodium 136 mmol/L (135-145); Total Protein 6.2 g/dL (6.4-8.9)
[2018-12-30 15:50] LABS: Barbiturates Urine Screen None Detected (None Detect); Benzodiazepine Urine Screen None Detected (None Detect); Urine Cannabinoids Screen None Detected (None Detect)
[2018-12-30 15:54] LABS: Acetaminophen < 15 mcg/mL; Alcohol < 10 mg/dL (<10); Salicylate < 2.50 mg/dL (<30)
[2018-12-30 16:08] LABS: TSH (Thyroid Stimulating Horm) 1.07 mcIU/mL (0.34-5.60)
[2018-12-30 20:07] VITALS: BP 121/66
== END 2018-12-30 20:06 | disposition home or self-care (01) ==
LOC: ED 13:19
DX: F41.9 Anxiety disorder, unspecified (principal); R25.1 Tremor, unspecified; I10 Essential (primary) hypertension; K21.9 Gastro-esophageal reflux disease without esophagitis; Z96.652 Presence of left artificial knee joint
CPT/HCPCS: 36415; 80053; 80307; 80320; 80329; 81003; 84443; 85025; 99283; G0480

== ENCOUNTER 2019-02-06 10:37 | Day surgery (SDC) | payer MEDICARE ==
[~2019-02-06 10:37] MED LIST: Acetaminophen TAB* 325 MG PO PRN
[2019-02-06] MEDS ORDERED: Povidone Iodine 5% OPTH* 30 ML BTL ONE (11:59)
[2019-02-06] MEDS ORDERED: Neomycin/Polymy/Dex OPHTH.OIN* 3.5 GM ONE (11:59)
[2019-02-06] MEDS ORDERED: Cyclopentolate 1% OPTH.SOL* 2 ML BTL ONE (11:59)
[2019-02-06] MEDS ORDERED: acetaZOLAMIDE TAB* 250 MG ONE (11:59)
[2019-02-06] MEDS ORDERED: Phenylephrine OPHTH SOL 2.5%* 2 ML ONE (11:59)
[2019-02-06] MEDS ORDERED: Lidocaine 1%* 5 ML VIAL ONE (11:59)
[2019-02-06] MEDS ORDERED: Ketorolac 0.5% OPHTH (NF) 0.5 % 5 ML BTL ONE (11:59)
[2019-02-06] MEDS ORDERED: Tetracaine 0.5% OPTH.SOL 4 ML* 1 DROP BTL ONE (11:59)
[2019-02-06] MEDS ORDERED: Tropicamide 1% OPTH.SOL* BTL ONE (11:59)
[2019-02-06] MEDS ORDERED: Midazolam* 1 MG/ML 2 ML VIAL (2 MG) ONE (12:57)
[2019-02-06 13:33] VITALS: BP 109/57
--- NOTE | 2019-02-07 00:46 | OP ---
DATE OF OPERATION: 02/06/19 - [facility] DATE OF : 35 SURGEON: Tramaine Rocha MD ANESTHESIA: Monitored anesthesia care. PREOPERATIVE DIAGNOSIS: Cataract, left eye. POSTOPERATIVE DIAGNOSIS: Cataract, left eye. OPERATIVE PROCEDURE: Extracapsular cataract extraction of the left eye with intraocular lens implant. ANESTHESIA: Monitored anesthesia care. IMPLANT: SN60WF 20.0 diopter lens to the left eye. COMPLICATIONS: None. DESCRIPTION OF PROCEDURE: The patient was given phenylephrine 2.5 % and cyclopentolate 1% eye drops to the operative eye in the preoperative area. The patient was taken to the operating room where a time-out was taken to identify the correct patient, site, and side of surgery. The patient's left eye was prepped and draped in the usual sterile fashion with 5% Betadine. A second time- out was taken to verify the correct patient, side, and site of surgery, as well as the correct lens implant. A lid speculum was placed to the left eye. A 1mm paracentesis blade was used to make a clear corneal incision. Preservative-free 1% lidocaine was injected into the anterior chamber. DisCoVisc was then injected into the anterior chamber. A 2.75 mm keratome blade was used to make a triplanar incision. A cystotome initiated a capsulorrhexis, which was completed with Utrata forceps in a continuous and curvilinear manner. Hydrodissection of the lens was performed with BSS on a cannula. The lens could be spun in a capsular bag. The phacoemulsification handpiece was used with a divide-and- conquer technique to remove the nucleus. The I/A handpiece then removed the residual cortical lens material. DisCoVisc was injected to inflate the capsular bag. The planned SN60WF 20.0 diopter lens was injected into the capsular bag. The residual DisCoVisc was removed from the eye with the I/A handpiece. The corneal incisions were hydrated and no leaks occurred at physiologic pressure around 20 mmHg per palpation. The lid speculum was removed and drapes were removed. Maxitrol ointment was placed to the surface of the operative eye. An adhesive patch and shield was then placed on the operative eye. The patient was taken to the postoperative area in stable condition. [id number]/[facility] #: [id number] LATRELL
== END 2019-02-06 13:34 | disposition home or self-care (01) ==
LOC: OREAST 10:37
PROVIDERS: ATTEND Student in an Organized Health Care Education/Training Program
DX: H25.812 Combined forms of age-related cataract, left eye (principal); J30.2 Other seasonal allergic rhinitis; I10 Essential (primary) hypertension; K21.9 Gastro-esophageal reflux disease without esophagitis; F41.1 Generalized anxiety disorder; F52.21 Male erectile disorder; Z68.27 Body mass index [BMI] 27.0-27.9, adult; Z79.82 Long term (current) use of aspirin; Z96.1 Presence of intraocular lens
CPT/HCPCS: A9270-GY; J2250; V2632